=== PATIENT | male | born 1975 | race Two or more races ===

== ENCOUNTER 2017-11-07 09:17 | Emergency (ER) | payer BC ==
[~2017-11-07] VITALS: Ht 162.6 cm; Wt 93.0 kg
[~2017-11-07 09:17] MED LIST: IBUPROFEN600 MG ORAL; NKM; NORCO 5-325 TA1 EAC1 ORAL
[2017-11-07 09:39] VITALS: BP 128/92
[2017-11-07 10:00] LABS: BASOPHILS % (AUTO) 0.9 % (0.0-2.0); EOSINOPHILS % (AUTO) 3.3 % (0.0-3.0); HEMATOCRIT 47.5 % (42.0-52.0); HEMOGLOBIN 16.3 G/DL (14.2-18.0); LYMPHOCYTES % (AUTO) 24.5 % (20.0-45.0); MEAN CORPUSCULAR VOLUME 97 FL (80-99); MONOCYTES % (AUTO) 8.9 % (1.0-10.0); NEUTROPHILS % (AUTO) 62.4 % (45.0-75.0); PLATELET COUNT 104 K/UL (150-450); RED CELL DISTRIBUTION WIDTH 11.2 % (11.6-14.8); WHITE BLOOD COUNT 5.9 K/UL (4.8-10.8)
--- NOTE | 2017-11-07 10:05 | Emergency Room Report ---
History of Present Illness General Chief Complaint: Chest Pain Source: Patient Present Illness HPI This patient has mild, general, nonspecific complaints. 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 He felt somewhat lightheaded, mildly generally weak, blurry vision. He sat down, felt ok, then symptoms returned. He checked google and was concerned he might be having a stroke so came to ED. No trauma, no fever, no shortness of breath, no chest pain, no nausea, no vomiting, no diarrhea, no abdominal pain, no syncope, LOC, dizziness , lightheadedness, headache. CRF: none PMH: "fatty" liver Social: drinks beer daily Allergies: Coded Allergies: FISH DERIVED (Verified Allergy, Unknown, 11/03/15) Shrimp (Verified Allergy, Unknown, 11/03/15) Nursing Documentation-PMH Past Medical History: No Stated History Hx Hypertension: Yes Hx Diabetes: Yes Review of Systems Constitutional: Denies: fever Eye: Denies: acuity changes Respiratory: Denies: cough, shortness of breath Cardiovascular: Denies: chest pain Gastrointestinal: Denies: nausea, vomiting Skin: Denies: rash Neurological: Denies: headache Physical Exam Vital Signs Date Time Temp Pulse Resp B/P (MAP) Pulse Ox O2 Delivery O2 Flow Rate FiO2 11/07/17 09:21 98.1 78 18 133/96 96 Room Air 98.1 General Appearance: well appearing, no apparent distress Head: normocephalic, atraumatic ENT: hearing grossly normal, normal voice, dry mucus membranes Neck: full range of motion, supple Respiratory: no respiratory distress, speaking full sentences Musculoskeletal: no calf tenderness Neurologic: alert, normal gait Psychiatric: mood/affect normal Skin: no rash Medical Decision Making Reaction to Intervention: Improved Diagnostic Impression: Primary Impression: Episode of generalized weakness ER Course the only abnorm on PE was mildly dry mucous membranes and patient does feel thirsty. labs, ekg ok. i reassured patient, gave one liter NS and feeling much better. counseled re drinking and AA. no further intervention required at this time. EKG Diagnostic Results EKG Time: 10:02 Rate: normal Rhythm: NSR ST Segments: no acute changes Rhythm Strip Diag. Results Rhythm Strip Time: 10:02 EP Interpretation: yes Rhythm: NSR Last Vital Signs Date Time Temp Pulse Resp B/P (MAP) Pulse Ox O2 Delivery O2 Flow Rate FiO2 724/18 09:39 87 18 Room Air 11/07/17 09:39 98.1 128/92 99 98.1 Status: improved Disposition: HOME, SELF-CARE Condition: Improved Referrals: NOT CHOSEN IPA/,REFERRING (PCP) Patient Instructions: Dehydration, Adult, [id number] Ancelmo Gaines M.D. Nov 07, 2017 10:05
[2017-11-07 10:10] LABS: ANION GAP 10 mmol/L (5-15); BLOOD UREA NITROGEN 12 mg/dL (7-18); CALCIUM 8.7 MG/DL (8.5-10.1); CARBON DIOXIDE 27 MMOL/L (21-32); CHLORIDE 100 MMOL/L (98-107); CREATININE 0.8 MG/DL (0.55-1.30); POTASSIUM 3.6 MMOL/L (3.5-5.1); SODIUM 137 MMOL/L (136-145)
[2017-11-07 10:21] LABS: ALANINE AMINOTRANSFERASE 46 U/L (12-78); ALBUMIN 3.3 G/DL (3.4-5.0); ALBUMIN/GLOBULIN RATIO 0.6 (1.0-2.7); ALKALINE PHOSPHATASE 232 U/L (46-116); ASPARTATE AMINO TRANSFERASE 71 U/L (15-37); BILIRUBIN,TOTAL 1.3 MG/DL (0.2-1.0); CREATINE KINASE 61 U/L (26-308)
[2017-11-07 10:22] LABS: BILIRUBIN,DIRECT 0.7 MG/DL (0.0-0.3)
[2017-11-07 10:50] VITALS: BP 129/93
[2017-11-07 12:40] VITALS: BP 124/89
--- NOTE | 2017-11-08 15:39 | Cardiology Report ---
APPROVED REPORT EKG Measurement Heart [id number] Normal sinus rhythm Normal ECG
== END 2017-11-07 13:02 | disposition home or self-care (01) ==
LOC: EMR 09:42
DX: R53.1 Weakness (principal); Z91.013 Allergy to seafood; E11.9 Type 2 diabetes mellitus without complications; I10 Essential (primary) hypertension
CPT/HCPCS: 36415; 80053; 82248; 82550; 85025; 93005; 96360; 99283

== ENCOUNTER 2018-08-15 11:43 | Emergency (ER) | payer BC ==
[~2018-08-15] VITALS: Ht 165.1 cm; Wt 83.0 kg
--- NOTE | 2018-08-15 12:13 | NUR ---
ED Nurse Note:pt. came with c/o anxiety and left arm numbness for 2 hrs, no unilateral weakness or facial drulling noted
[2018-08-15 12:16] VITALS: BP 138/77
[2018-08-15 13:03] VITALS: BP 122/83
--- NOTE | 2018-08-15 13:05 | NUR ---
ER DISCHARGE NOTE: Patient is cleared to be discharged per ERMD, pt is aox4, on room air, with stable vital signs. pt was given dc and prescription instructions, pt was able to verbalize understanding pt is able to ambulate with steady gait. pt took all belongings.
--- NOTE | 2018-08-15 13:22 | Emergency Room Report ---
History of Present Illness General Chief Complaint: General Complaint Source: Patient Present Illness HPI Patient presents with complaints of left shoulder numbness and tingling that started earlier today He reports that he wears his work bag on his left shoulder Was not sure if this contributed to his discomfort However he was concern about possible heart attack Denies any shortness of breath patient had questionable left upper chest discomfort as well with this denies any pleurisy Patient reports that his primary physician told him he likely had underlying anxiety and has prescribed him benzodiazepine medication patient has also been given referral to GI specialist given some abnormal liver test patient reports that he does drink alcohol regularly Denies any pleurisy denies any recent travel Allergies: Coded Allergies: FISH DERIVED (Verified Allergy, Unknown, 11/03/15) Shrimp (Verified Allergy, Unknown, 11/03/15) Patient History Past Medical History: see triage record Pertinent Family History: none Reviewed Nursing Documentation: PMH: Agreed; PSxH: Agreed Nursing Documentation-PMH Past Medical History: No History, Except For Hx Hypertension: Yes Hx Diabetes: Yes Review of Systems All Other Systems: negative except mentioned in HPI Physical Exam Vital Signs Date Time Temp Pulse Resp B/P (MAP) Pulse Ox O2 Delivery O2 Flow Rate FiO2 08/15/18 11:47 98.2 92 20 144/89 94 Room Air Sp02 EP Interpretation: reviewed, normal General Appearance: well appearing, no apparent distress Head: normocephalic, atraumatic Eyes: bilateral eye PERRL, bilateral eye EOMI ENT: hearing grossly normal, normal pharynx, TMs + canals normal, uvula midline Neck: full range of motion, supple, no meningismus, no bony tend Respiratory: lungs clear, normal breath sounds, no rhonchi, no respiratory distress, no retraction, no accessory muscle use Cardiovascular #1: normal peripheral pulses, regular rate, rhythm, no edema, no gallop, no JVD, no murmur Gastrointestinal: normal bowel sounds, non tender, soft, no mass, no organomegaly, non-distended, no guarding, no hernia, no pulsatile mass, no rebound Genitourinary: no CVA tenderness Musculoskeletal: normal inspection Neurologic: oriented x3, responsive, cage cashier III-XII nml as tested, motor strength/ tone normal, sensory intact Psychiatric: mood/affect normal Skin: normal color, no rash, warm/dry, palpation normal Lymphatic: normal inspection, no adenopathy Medical Decision Making Diagnostic Impression: Primary Impression: radiculopathy ER Course Patient is a fairly complex patient with multiple differential to consideration including but not limited to cardiac cardiopulmonary and vascular emergencies Other differentials such as neurological, neurosurgical musculoskeletal pathology entertained Patient has equal medical collector bilaterally otherwise essentially asymptomatic EKG shows normal sinus rhythm Patient remains hemodynamically stable and is appropriate for initial outpatient follow-up EKG Diagnostic Results Rate: normal Rhythm: NSR ST Segments: no acute changes Rhythm Strip Diag. Results EP Interpretation: yes Rate: 77 Rhythm: NSR, no PVC's, no ectopy Last Vital Signs Date Time Temp Pulse Resp B/P (MAP) Pulse Ox O2 Delivery O2 Flow Rate FiO2 08/15/18 13:04 98.2 95 20 122/83 97 Room Air Status: improved Disposition: HOME, SELF-CARE Condition: Stable Referrals: Sancho [facility] Patient Instructions: Nonspecific Chest Pain, [id number], Cervical Radiculopathy, [id number] Additional Instructions: Patient is provided with the discharge instructions notified to follow up with primary doctor in the next 2-3 days otherwise return to the er with any worsening symptoms. Please note that this report is being documented using [employer] technology. This can lead to erroneous entry secondary to incorrect interpretation by the dictating instrument. Braulio Davenport DO August 15, 2018 13:22
--- NOTE | 2018-08-16 17:45 | Cardiology Report ---
APPROVED REPORT EKG Measurement Heart [id number] Normal sinus rhythm Normal ECG
== END 2018-08-15 13:10 | disposition home or self-care (01) ==
LOC: EMR 12:20
DX: M54.12 Radiculopathy, cervical region (principal); I10 Essential (primary) hypertension; E11.9 Type 2 diabetes mellitus without complications
CPT/HCPCS: 93005; 99283

== ENCOUNTER 2018-10-17 11:36 | Emergency (ER) | payer BC ==
[~2018-10-17] VITALS: Ht 165.1 cm; Wt 83.9 kg
--- NOTE | 2018-10-17 12:12 | NUR ---
ED Nurse Note: PT WALKED IN TO ER TODAY FROM WORK. AOX4. PT C/O HEART PALPITATIONS AND ANXIETY X 1 HOUR AGO. PT STATES HE TOOK HIS PRESCRIBED MEDICATION FOR ANXIETY AND IS NOW FEELING BETTER. PT DENIES PALPITATIONS OR ANXIETY AT THIS TIME.
[2018-10-17 12:13] VITALS: BP 126/80
--- NOTE | 2018-10-17 12:24 | Emergency Room Report ---
History of Present Illness General Chief Complaint: Behavioral Complaint Source: Patient Present Illness HPI This patient states that he has been diagnosed with anxiety. He does have Xanax to use as needed. He states he was at work and he developed the anxiety symptoms. He states he just feels anxious and nervous. He did take the Xanax but then was driving home and was not quite feeling well. He decided to stop here to get evaluated. He states by the time he got fully checked and he felt normal and back to baseline. He has no complaints. He did not have chest pain during the episode. He did not feel like he was going to pass out. He denies recent illness. He has no other complaints. Allergies: Coded Allergies: FISH DERIVED (Verified Allergy, Unknown, 11/03/15) Shrimp (Verified Allergy, Unknown, 11/03/15) Patient History Past Medical History: see triage record, DM, HTN, psych hx - Anxiety Social History: Denies: smoking, alcohol use, drug use Reviewed Nursing Documentation: PMH: Agreed; PSxH: Agreed Nursing Documentation-PMH Past Medical History: No History, Except For Hx Hypertension: Yes Hx Diabetes: Yes History Of Psychiatric Problem: Yes - anxiety Review of Systems All Other Systems: negative except mentioned in HPI Physical Exam Vital Signs Date Time Temp Pulse Resp B/P (MAP) Pulse Ox O2 Delivery O2 Flow Rate FiO2 10/17/18 11:39 98.6 85 22 130/84 (99) 95 Room Air Sp02 EP Interpretation: reviewed, normal General Appearance: no apparent distress, alert, GCS 15, non-toxic Head: normocephalic, atraumatic Eyes: bilateral eye normal inspection, bilateral eye PERRL ENT: hearing grossly normal, normal pharynx, no angioedema, normal voice Neck: full range of motion, supple/symm/no masses Respiratory: chest non-tender, lungs clear, normal breath sounds, no respiratory distress, no retraction, no accessory muscle use, speaking full sentences Cardiovascular #1: regular rate, rhythm, no edema Gastrointestinal: normal bowel sounds, non tender, soft, non-distended, no guarding, no rebound Rectal: deferred Musculoskeletal: back normal, gait/station normal, normal range of motion, non- tender Neurologic: alert, oriented x3, responsive, motor strength/tone normal, sensory intact, speech normal Psychiatric: judgement/insight normal, memory normal, mood/affect normal, no suicidal/homicidal ideation Medical Decision Making Diagnostic Impression: Primary Impression: Panic attacks ER Course This patient has known panic attacks. He treated himself with his own Xanax prior to arrival. The feelings he was having just after he took the Xanax are likely side effects related to the Xanax. My evaluation on this patient is benign. The patient is well-appearing and nontoxic. Physical exam is normal. The patient does not desire any further evaluation and I do not think that any further evaluation is indicated at this time. The patient was educated to be careful with the Xanax as it is habit-forming. He indicated understanding. He is given return precautions and follow-up instructions. Last Vital Signs Date Time Temp Pulse Resp B/P (MAP) Pulse Ox O2 Delivery O2 Flow Rate FiO2 10/17/18 12:13 78 18 Room Air 10/17/18 12:13 98.4 126/80 98 Status: improved Disposition: HOME, SELF-CARE Condition: Improved Coco Chavez DO Oct 17, 2018 12:24
--- NOTE | 2018-10-17 12:27 | NUR ---
ED Nurse Note: PT LAYING PEACEFULLY IN BED IN NAD. AOX4. DISCHARGE PAPERWORK EXPLAINED TO PT. PT VERBALIZES UNDERSTANDING AND ALL QUESTIONS ANSWERED. DISCHARGE PAPERWORK GIVEN TO PT AND ID WRISTBAND REMOVED. PT WALKED OUT OF ER WITH STEADY GAIT AND ALL BELONGINGS.
[2018-10-17 12:28] VITALS: BP 126/82
== END 2018-10-17 12:27 | disposition home or self-care (01) ==
LOC: EMR 12:15
DX: F41.0 Panic disorder [episodic paroxysmal anxiety] (principal); I10 Essential (primary) hypertension; E11.9 Type 2 diabetes mellitus without complications; F41.9 Anxiety disorder, unspecified
CPT/HCPCS: 99281

== ENCOUNTER 2019-02-18 13:18 | Inpatient (IN) | payer BC ==
[~2019-02-18] VITALS: Ht 165.1 cm; Wt 78.1 kg
[2019-02-18] MEDS ORDERED: B COMPLEX WITH1 EAC2 ORAL (13:27)
[2019-02-18] MEDS ORDERED: Methocarbamol 500mg tab ORAL ONE (13:45)
[2019-02-18] MEDS ORDERED: Omnipaque-300 100ml vial INJ PRN (13:45)
[2019-02-18 14:01] VITALS: BP 132/84
--- NOTE | 2019-02-18 14:05 | NUR ---
ED Nurse Note:pt. came with bilateral hands cramping his skin and eyes are yellow , blood and urine sent to labs
[2019-02-18 14:19] LABS: APPEARANCE,URINE CLEAR; BILIRUBIN, URINE 3+ (NEGATIVE); COLOR,URINE BROWN; GLUCOSE, URINE (UA) NEGATIVE (NEGATIVE); KETONES,URINE 2+ (NEGATIVE); LEUKOCYTE ESTERASE ,URINE 1+ (NEGATIVE); NITRITE,URINE NEGATIVE (NEGATIVE); PH,URINE 6.5 (4.5-8.0); PROTEIN,URINE 2+ (NEGATIVE); UROBILINOGEN,URINE 8 MG/DL (0.0-1.0)
[2019-02-18 14:21] LABS: HEMOGLOBIN 13.9 G/DL (14.2-18.0); MEAN CORPUSCULAR VOLUME 105 FL (80-99); PLATELET COUNT 97 K/UL (150-450); RED BLOOD COUNT 3.82 M/UL (4.70-6.10); WHITE BLOOD COUNT 8.2 K/UL (4.8-10.8)
[2019-02-18 14:30] LABS: INR 1.5 (0.9-1.1)
[2019-02-18 14:31] LABS: ANION GAP 9 mmol/L (5-15); BLOOD UREA NITROGEN 13 mg/dL (7-18); CALCIUM 8.4 MG/DL (8.5-10.1); CARBON DIOXIDE 26 MMOL/L (21-32); CHLORIDE 101 MMOL/L (98-107); CREATININE 0.9 MG/DL (0.55-1.30); POTASSIUM 3.7 MMOL/L (3.5-5.1); SODIUM 135 MMOL/L (136-145)
[2019-02-18 14:41] LABS: ALANINE AMINOTRANSFERASE 50 U/L (12-78); ALBUMIN/GLOBULIN RATIO 0.4 (1.0-2.7); ALKALINE PHOSPHATASE 223 U/L (46-116); ASPARTATE AMINO TRANSFERASE 122 U/L (15-37); BILIRUBIN,TOTAL 21.1 MG/DL (0.2-1.0)
[2019-02-18 14:43] LABS: BILIRUBIN,DIRECT 15.1 MG/DL (0.0-0.3)
--- NOTE | 2019-02-18 14:53 | Emergency Room Report ---
History of Present Illness General Chief Complaint: General Complaint Source: Patient (Palma Lambert) Present Illness HPI 43-year-old male with history of liver cirrhosis 1 hour onset of a locked right hand on working. Patient denies any fall or injury or heavy lifting. Reports that it also happens as he tries to hold something at work and last several months. Patient has bilateral icterus of eyes and distended abdomen with ventral abdominal hernia which has been there changing color for the past several months. Denies fever and chills, shortness of breath, nausea vomiting. Reports that he used to drink 15 beers a day now in the past week he has been cutting back and drinking 6-8 beers a day. Denies smoking, marijuana use, no other drug use. Denies diarrhea and constipation. No motor or sensory deficits noted. Complains of pain and numbness in the right hand. Reports that he used to take Xanax occasionally for anxiety. Denies SI and HI. (Palma Lambert) Allergies: Coded Allergies: FISH DERIVED (Verified Allergy, Unknown, 11/03/15) Shrimp (Verified Allergy, Unknown, 11/03/15) Patient History Past Medical History: see triage record Past Surgical History: unable to obtain Pertinent Family History: none Social History: Reports: alcohol use - 6-8 beers a day x20 years Immunizations: UTD Reviewed Nursing Documentation: PMH: Agreed; PSxH: Agreed (Palma Lambert) Nursing Documentation-PMH Past Medical History: No Stated History Hx Hypertension: Yes (Palma Lambert) Review of Systems All Other Systems: negative except mentioned in HPI (Palma Lambert) Physical Exam Vital Signs Date Time Temp Pulse Resp B/P (MAP) Pulse Ox O2 Delivery O2 Flow Rate FiO2 02/18/19 13:22 97.5 105 19 132/84 (100) 98 Room Air Sp02 EP Interpretation: reviewed, normal General Appearance: no apparent distress, alert, GCS 15, non-toxic Head: normocephalic, atraumatic Eyes: bilateral eye PERRL, bilateral eye scleral icterus ENT: hearing grossly normal, normal pharynx, no angioedema, normal voice Neck: full range of motion, supple, no meningismus, supple/symm/no masses Respiratory: chest non-tender, lungs clear, normal breath sounds, no rhonchi, no respiratory distress, no retraction, no accessory muscle use, no wheezing, speaking full sentences Cardiovascular #1: regular rate, rhythm, no edema, no gallop, no JVD, no murmur , no rub Cardiovascular #2: 2+ carotid (R), 2+ radial (R), 2+ radial (L) Gastrointestinal: normal bowel sounds, no guarding, no rebound, distended, hernia - ventral Genitourinary: no CVA tenderness Musculoskeletal: back normal, digits/nails normal, gait/station normal, normal range of motion, non-tender, no calf tenderness Neurologic: alert, oriented x3, responsive, motor strength/tone normal, sensory intact, speech normal Psychiatric: normal inspection, judgement/insight normal, memory normal, mood/ affect normal, no suicidal/homicidal ideation Skin: no rash Lymphatic: normal inspection, no adenopathy (Palma Lambert) Medical Decision Making PA Attestation All my diagnosis and treatment plans were reviewed ad discussed with my supervising physician Dr. 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 Patient denies any fall or injury or heavy lifting. Reports that it also happens as he tries to hold something at work and last several months. Patient has bilateral icterus of eyes and distended abdomen with ventral abdominal hernia which has been there changing color for the past several months. Denies fever and chills, shortness of breath, nausea vomiting. Reports that he used to drink 15 beers a day now in the past week he has been cutting back and drinking 6-8 beers a day. Denies smoking, marijuana use, no other drug use. Denies diarrhea and constipation. No motor or sensory deficits noted. Complains of pain and numbness in the right hand. Reports that he used to take Xanax occasionally for anxiety. Denies SI and HI. Ddx considered but are not limited to: appendicitis, cholecystis, gastritis, gastroenteritis, UTI, pyelonephritis, SBO, diverticulitis, influenza with GI manifestation, liver cirrhosis, incarcerated hernia, strangulated hernia, nonreducible hernia Vital signs: are WNL, pt. is afebrile H&PE are most consistent with: Liver cirrhosis ORDERS: abdominal CT, abdominal pain set, EKG, ED INTERVENTIONS: None required at this time. Patient was admitted with diagnosis of liver failure/cirrhosis to Dr. Busch under supervision of : Christie pt stable at time of admission (Palma Lambert) ER Course I evaluated this patient with MILDRED Degroot. I agree with her workup and assessment. I agree that patient would benefit from inpatient admission. I contacted Dr Hernandez for admission and Dr Carreno to consult (Jose Eduardo Soriano MD) EKG Diagnostic Results Rate: normal Rhythm: NSR ST Segments: no acute changes Other Impression No acute ST changes (Palma Lambert) Chest X-Ray Diagnostic Results Chest X-Ray Diagnostic Results : Chest X-Ray Ordered: Yes # of Views/Limited/Complete: 1 View Indication: Other EP Interpretation: Yes PA Xray: Interpretation reviewed, by supervising MD, and agrees with findings. Interpretation: no consolidation, no effusion, no pneumothorax Impression: No acute disease Electronically Signed by: Palma Daniels PA-C (Palma Lambert) CT/MRI/US Diagnostic Results CT/MRI/US Diagnostic Results : Imaging Test Ordered: CT abd pelvis with contrast Impression Liver cirrhosis (Palma Lambert) Last Vital Signs Date Time Temp Pulse Resp B/P (MAP) Pulse Ox O2 Delivery O2 Flow Rate FiO2 02/18/19 14:01 97.5 105 19 132/84 98 Room Air (Palma Lambert) Status: improved (Jose Eduardo Soriano MD) Disposition: ADMITTED INPATIENT Condition: Serious Palma Lambert Feb 18, 2019 14:53 Jose Eduardo Soriano MD Feb 18, 2019 19:46
--- NOTE | 2019-02-18 15:02 | NUR ---
ED Nurse Note:pt. had abdominal ct scan done
--- NOTE | 2019-02-18 15:14 | Diagnostic Imaging Report ---
Indication: Chest pain Comparison: None A single view chest radiograph was obtained. Findings: Cardiomediastinal appearance is within normal limits for age. The lungs are clear. Pulmonary vascularity is appropriate. The diaphragmatic contour is smooth and costophrenic angles are sharp. No pleural effusions are identified. The bones are unremarkable. Impression: No acute findings
--- NOTE | 2019-02-18 15:48 | Diagnostic Imaging Report ---
Indication: Abdominal pain Technique: Continuous helical transaxial imaging of the abdomen and pelvis was obtained from the lung bases to the pubic symphysis during intravenous contrast administration. Coronal 2-D reformats were also obtained. Study obtained in a Siemens sensation [address] Automatic Exposure Control was utilized. Total Dose length Product (DLP): 1023.[address] Dose Index Volume (CTDIvol): 16.4 mGy Comparison: None Findings: There is evidence of cirrhosis/chronic liver disease with nodularity of the liver moderate ascites recanalized umbilical vein and splenomegaly. Spleen measures 18 cm. There is no evidence of bowel obstruction. There is no hydronephrosis. Gallbladder is contracted. The pancreas is unremarkable. Subcutaneous edema demonstrated within the chest wall. There are increased vascular structures within the celiac region and splenic hilum likely portosystemic varices. There is mild right posterior basal atelectasis. There is right breast tissue consistent with gynecomastia. IMPRESSION: Cirrhosis of the liver with signs of portal hypertension including moderate ascites, splenomegaly, recanalized umbilical vein and portosystemic varices. Gynecomastia Mild right basal atelectasis The CT scanner at [facility] is accredited by the [employer] and the scans are performed using dose optimization techniques as appropriate to a performed exam including Automatic Exposure control.
[2019-02-18 17:04] VITALS: BP 130/81
--- NOTE | 2019-02-18 17:47 | NUR ---
REPORT GIVEN TO MIN RN PATIENT IS TO BE TRANSFERD TO ROOM 303-1 [facility]
[2019-02-18 18:00] VITALS: BP 147/96
--- NOTE | 2019-02-18 18:00 | NUR ---
NURSE NOTES: Patient transferred from ED via wheelchair with dispensary technician. No c/o pain. Received report from Yanet SHOEMAKER over the phone. Noted hernia around umbilicus. No edema noted on BLE. No SOB noted. IV in LAC 20G SL patent and asymptomatic. patient admitted with his . Home meds Xanax will be returned to home by his . Belonging list reviewed and singed by the patient. Will continue to plan of care.
[2019-02-18] MEDS ORDERED: VITAMIN B-1100 MG ORAL (18:08)
[2019-02-18] MEDS ORDERED: ALPRAZOLAM0.25 MG ORAL (18:08)
--- NOTE | 2019-02-18 18:16 | NUR ---
NURSE NOTES: Dr. Hernandez paged for admission orders. Per MD, he is going to put the orders in.
[2019-02-18] MEDS ORDERED: Morphine Sulfate 2mg/ml Inj(IV/IM USE ONLY) IVP PRN (18:45)
--- NOTE | 2019-02-18 19:15 | NUR ---
HAND-OFF: Report given to Jose SHOEMAKER. Pt remains stable.
--- NOTE | 2019-02-18 19:30 | NUR ---
NURSE NOTES: Received report form Min, RN and rounds made with outgoing nurse. Received pt sitting up in bed, AOx4, denies any pain, no nausea or vomiting, no distress noted. IV left AC # 20 patent and intact. Bed in lowest position and locked, side rails up x 2, call light within reach. Will continue to monitor.
[2019-02-18 20:00] VITALS: BP 139/90
[2019-02-18] MEDS ORDERED: Enoxaparin 40mg Inj SUBQ SCH (20:00)
--- NOTE | 2019-02-18 20:06 | History & Physical ---
History and Physical History & Physicial dictated #[id number] Casey Hernandez MD Feb 18, 2019 20:06
[2019-02-18] MEDS ORDERED: ALPRAZolam 0.25mg tab ORAL PRN (20:15)
[2019-02-19] VITALS: BP 128/80
--- NOTE | 2019-02-19 01:00 | History and Physical Report ---
DATE OF ADMISSION: 02/18/2019 REASON FOR ADMISSION: Left hand tremors and spasms. HISTORY OF PRESENT ILLNESS: This is a 43-year-old male with a history of alcoholism since younger, recently diagnosed with liver disease, who presents to the emergency room for cramps of the left hand and pain. He states that his left hand has been locking, it started last week. He also reports having yellow eyes over the last 2 months and has noted that his abdomen has been more distended over the last 2 weeks. He drinks about 12 to 14 beers a day for the last 3 to 4 years and was drinking 8 beers a day prior to that. He states he saw a neon electrician on one visit, but did not follow up with him. PAST MEDICAL HISTORY: 1. Cirrhosis. 2. Ventral hernia. PAST SURGICAL HISTORY: None. SOCIAL HISTORY: The patient drinks 12 to 14 beers a day, was drinking 6 to 8 beers before that for the last 20 years, no drugs. No smoking. REVIEW OF SYSTEMS: A 12-point review of systems was negative except for pertinent positives as mentioned above. PHYSICAL EXAMINATION: VITAL SIGNS: Temperature 96.8, pulse 104, respiratory rate 18, blood pressure 147/96, O2 saturation 95% on room air. GENERAL: No acute distress. The patient has icterus. The patient is jaundiced. HEENT: Normocephalic/atraumatic. NECK: Supple. No JVD. LUNGS: Clear to auscultation bilaterally. No crackles, rhonchi, or rales. CARDIOVASCULAR: Regular rate and rhythm. Normal S1, S2. ABDOMEN: Soft, nontender. Abdomen is distended. He has a fluid wave. EXTREMITIES: No clubbing, cyanosis. Has +1 pitting edema. NEUROLOGIC: The patient follows commands. LABORATORY AND DIAGNOSTIC DATA: CBC, white count of 8.2, hemoglobin 13.9, platelet count 97,000. BMP, sodium 135, potassium 3.7, chloride 101, CO2 26, BUN 13, and creatinine 0.9. Total bilirubin 21.1, direct bilirubin 16.1. AST is 122, ALT is 50, alkaline phosphatase 223. Albumin is 2. Lipase 510. Urinalysis 2 to 4 white blood cells, 1+ leukocyte esterase, 2+ blood, 3+ bilirubin, 2+ protein. Urine tox is negative. CT of abdomen and pelvis shows cirrhosis of the liver with signs of portal hypertension, moderate ascites, splenomegaly, recanalized umbilical vein and portal system, gynecomastia. Chest x-ray shows no acute findings. ASSESSMENT: 1. Left hand cramps. 2. Cirrhosis with ascites, coagulopathy with INR of 1.5, splenomegaly, and portal hypertension (MELD score 22) 3. Alcoholism. PLAN: 1. Admit the patient to med/surg. 2. GI consult in the morning. 3. Evaluation for paracentesis. 4. Discussed with the patient on discontinuing alcohol. 5. We will start thiamine and folate. 6. SCDs. 7. Resume patient's home medications. Casey Hernandez MD DR: Corin JOB#: [id number] CC: ERNA
[2019-02-19 04:55] VITALS: BP 130/79
--- NOTE | 2019-02-19 06:39 | General Progress Note ---
Assessment/Plan Assessment/Plan: ETOH cirrhosis ascites hypoalbuminemia coagulopathy portal HTN paracentesis albumin vit K thiamine/folate EGD tomorrow repeat labs Subjective ROS Limited/Unobtainable: Yes Allergies: Coded Allergies: FISH DERIVED (Verified Allergy, Unknown, 11/03/15) Shrimp (Verified Allergy, Unknown, 11/03/15) Objective Last 24 Hour Vital Signs Date Time Temp Pulse Resp B/P (MAP) Pulse Ox O2 Delivery O2 Flow Rate FiO2 02/19/19 04:55 99.0 93 18 130/79 (96) 95 02/19/19 00:00 98.1 99 18 128/80 (96) 95 02/18/19 21:00 Room Air 02/18/19 20:00 98.3 99 18 139/90 (106) 94 02/18/19 18:11 Room Air 02/18/19 18:00 96.8 104 18 147/96 (113) 95 02/18/19 17:47 97.8 78 16 130/80 98 Room Air 02/18/19 17:04 97.5 98 17 130/81 98 Room Air 02/18/19 14:01 97.5 105 19 132/84 98 Room Air 02/18/19 14:01 105 19 Room Air 02/18/19 13:22 97.5 105 19 132/84 (100) 98 Room Air Intake and Output 02/18/19 02/19/19 19:00 07:00 Intake Total 120 ml Balance 120 ml Intake Oral 120 ml # Voids 1 Laboratory Tests 02/18/19 14:00: White Blood Count 8.2, Red Blood Count 3.82L, Hemoglobin 13.9L, Hematocrit 40.0L , Mean Corpuscular Volume 105H, Mean Corpuscular Hemoglobin 36.5H, Mean Corpuscular Hemoglobin Concent 34.8, Red Cell Distribution Width 13.0, Platelet Count 97L, Mean Platelet Volume 6.8, Neutrophils (%) (Auto) , Lymphocytes (%) ( Auto) , Monocytes (%) (Auto) , Eosinophils (%) (Auto) , Basophils (%) (Auto) , Differential Total Cells Counted 100, Neutrophils % (Manual) 82H, Lymphocytes % (Manual) 9L, Monocytes % (Manual) 7, Eosinophils % (Manual) 2, Basophils % ( Manual) 0, Band Neutrophils 0, Nucleated Red Blood Cells 2, Platelet Estimate DecreasedL, Platelet Morphology Normal, Prothrombin Time 15.8H, Prothromb Time International Ratio 1.5H, Activated Partial Thromboplast Time 36H, Urine Color Brown, Urine Appearance Clear, Urine pH 6.5, Urine Specific [place] 1.020, Urine Protein 2+H, Urine Glucose (UA) Negative, Urine Ketones 2+H, Urine Blood 2 +H, Urine Nitrite Negative, Urine Bilirubin 3+H, Urine Ictotest Positive, Urine Urobilinogen 8H, Urine Leukocyte Esterase 1+H, Urine RBC 2-4H, Urine WBC 2-4, Urine Squamous Epithelial Cells Occasional, Urine Amorphous Sediment ModerateH, Urine Bacteria Few, Urine Mucus ModerateH, Sodium Level 135L, Potassium Level 3.7, Chloride Level 101, Carbon Dioxide Level 26, Anion Gap 9, Blood Urea Nitrogen 13, Creatinine 0.9, Estimat Glomerular Filtration Rate > 60, Glucose Level 115H, Calcium Level 8.4L, Total Bilirubin 21.1H, Direct Bilirubin 15.1H, Aspartate Amino Transf (AST/SGOT) 122H, Alanine Aminotransferase (ALT/SGPT) 50, Alkaline Phosphatase 223H, Troponin I 0.000, Total Protein 7.4, Albumin 2.0L, Globulin 5.4, Albumin/Globulin Ratio 0.4L, Lipase 510H, Urine Opiates Screen Negative, Urine Barbiturates Screen Negative, Phencyclidine (PCP) Screen Negative, Urine Amphetamines Screen Negative, Urine Benzodiazepines Screen Negative, Urine Cocaine Screen Negative, Urine Marijuana (THC) Screen Negative 02/18/19 21:15: Ammonia 22 02/19/19 04:45: Sodium Level [Pending], Potassium Level [Pending], Chloride Level [Pending], Carbon Dioxide Level [Pending], Blood Urea Nitrogen [Pending], Creatinine [ Pending], Estimat Glomerular Filtration Rate [Pending], Glucose Level [Pending] , Calcium Level [Pending], Total Bilirubin [Pending], Aspartate Amino Transf ( AST/SGOT) [Pending], Alanine Aminotransferase (ALT/SGPT) [Pending], Alkaline Phosphatase [Pending], Total Protein [Pending], Albumin [Pending], Globulin [ Pending] Height (Feet): 5 Height (Inches): 5.00 Weight (Pounds): 184 General Appearance: alert EENT: PERRL/EOMI Neck: supple Cardiovascular: normal rate Respiratory/Chest: decreased breath sounds Abdomen: soft, decreased bowel sounds, distended Extremities: non-tender Yovani Carreno MD Feb 19, 2019 06:39
[2019-02-19] MEDS ORDERED: Phytonadione 1 MG in D5W 55 ML IVPB ONE (07:00)
[2019-02-19 07:26] LABS: ALANINE AMINOTRANSFERASE 40 U/L (12-78); ALBUMIN 1.6 G/DL (3.4-5.0); ALBUMIN/GLOBULIN RATIO 0.3 (1.0-2.7); ALKALINE PHOSPHATASE 223 U/L (46-116); ANION GAP 8 mmol/L (5-15); ASPARTATE AMINO TRANSFERASE 99 U/L (15-37); BILIRUBIN,TOTAL 16.6 MG/DL (0.2-1.0); BLOOD UREA NITROGEN 12 mg/dL (7-18); CALCIUM 7.7 MG/DL (8.5-10.1); CARBON DIOXIDE 23 MMOL/L (21-32); CHLORIDE 103 MMOL/L (98-107); CREATININE 0.7 MG/DL (0.55-1.30); SODIUM 134 MMOL/L (136-145)
[2019-02-19 07:28] LABS: BILIRUBIN,DIRECT 12.6 MG/DL (0.0-0.3)
[2019-02-19 08:00] VITALS: BP_SYST 107; BP_SYST 115; BP_DIAS 66; BP_DIAS 76
--- NOTE | 2019-02-19 08:00 | NUR ---
NURSE NOTES: Received report from Jose Velasco pt a/a/o x4 laying in bed with no signs of distress or other issues at this time. notes yellow sclera as well as jaundice. no skin issues. pt is able to ambulate with steady gait. IV on the left AC gauge#20 call light within reach. bed in lowest position, side rales up x2. I will f/u as needed. plan for ultrasound Paracentesis today.
--- NOTE | 2019-02-19 08:11 | NUR ---
HAND-OFF: Report given to SAHARA Bradshaw. Pt in stable condition.
[2019-02-19] MEDS: Thiamine 100mg tab ORAL SCH (08:52)
--- NOTE | 2019-02-19 09:30 | NUR ---
NURSE NOTES: pt left the floor ultrasound paracentesis. pt left the floor with no signs of distress or other issues at this time. I will f/u as needed.
--- NOTE | 2019-02-19 10:30 | NUR ---
*-* INSURANCE *-* ALL AVAILABLE CLINICALS HAVE BEEN FAXED TO: KIANNA GILES CM #[phone] FAX#[phone] REVIEWS/CLINICALS Addendum: 02/19/19 at 1246 by JADA BECERRA CM JOSE:MICHELLE P: [phone] REF# [id number]
--- NOTE | 2019-02-19 11:09 | Pre-Procedure Note/Attestation ---
Pre-Procedure Note/Attestation Complete Prior to Procedure Planned Procedure: not applicable Procedure Narrative: paracentesis Indications for Procedure Pre-Operative Diagnosis: ascites Attestation I attest that I discussed the nature of the procedure; its benefits; risks and complications; and alternatives (and the risks and benefits of such alternatives ), prior to the procedure, with the patient (or the patient's legal marketing sales representative). I attest that, if there was a reasonable possibility of needing a blood transfusion, the patient (or the patient's legal marketing sales representative) was given the [facility] standardized written summary, pursuant to the [place] Blood Safety Act ([place] Health and Safety Code # 1645, as amended). I attest that I re-evaluated the patient just prior to the surgery and that there has been no change in the patient's H&P, except as documented below: Calixto Urbano MD Feb 19, 2019 11:09
--- NOTE | 2019-02-19 11:10 | Brief Operative Note ---
Immediate Post Operative Note Operative Note Pre-op Diagnosis: ascites Procedure: paracentesis Post-op Diagnosis: same as pre-op Findings: consistent w/pre-op dx studies Surgeon: Rach Munoz Anesthesia: local Specimen: yes - 50 ml fluid sent to lab Complications: none Fluids: none Implant(s) used?: No Calixto Munoz MD Feb 19, 2019 11:10
--- NOTE | 2019-02-19 11:30 | NUR ---
NURSE NOTES: Pt back to the floor from US paracenteses. per report removed 4.2L. pt in stable condition and no signs of distress. I will fu as needed.
[2019-02-19 12:00] VITALS: BP 115/63
--- NOTE | 2019-02-19 13:14 | Diagnostic Imaging Report ---
Indications: Ascites Technique: Ultrasound used to localize optimal puncture site. Sterile prepping and draping left lower quadrant. Local anesthesia with 1% lidocaine. Under real-time ultrasound guidance, puncture peritoneal space using paracentesis needle. Stylet removed. Catheter placed to vacuum bottle suction. Total 4.2 liters of fluid aspirated. Patient tolerated procedure well, without immediate complication. Findings: Followup sonography demonstrates complete resolution of peritoneal fluid. Impression: Successful ultrasound-guided paracentesis, yielding 4.2 liters of clear yellow fluid
--- NOTE | 2019-02-19 15:37 | NUR ---
CASE MANAGEMENT: INITIAL REVIEW 43 YR OLD MALE FROM HOME CC: GENERAL COMPLAINT SI: LIVER CIRRHOSIS; MUSCLE SPASM 97.6 105 19 132/84 98% ON RA TBIL 21.1; DBIL 15.1; AST 122; ALK PHOS 223 PT/INR 15.8/1.5; PTT 36 IS: ROBAXIN PO X1 CT ABD/PEL WITH CONTRAST CXR : 3E MED SURG UNIT DCP: RETURN HOME WHEN MEDICALLY CLEAR PLAN: CT ABD US PARACENTESIS CASE MANAGEMENT: REVIEW 02/19/19 SI: LIVER CIRRHOSIS; MUSCLE SPASM 98.0 89 20 115/76 93% ON RA CA+ 7.7; TBIL 16.6; DBIL 12.6; AST 99; ALK PHOS 223 IS: IV PHYTONADIONE X1 IV ALBUMIN HUMAN X1 VIT B1 PO QD FOLATE PO QD : 3E MED SURG UNIT DCP: RETURN HOME WHEN MEDICALLY CLEAR PLAN: EGD WITH POSSIBLE BX IN AM
[2019-02-19 16:00] VITALS: BP 123/77
--- NOTE | 2019-02-19 19:38 | NUR ---
HAND-OFF: Report given to Report given to Meagan SHOEMAKER. pt in stable condition. - incoming nurse is aware that pt needs to NPO after midnight for EGD.
--- NOTE | 2019-02-19 19:40 | NUR ---
NURSE NOTES: Patient awake in bed talking to family at bedside, no complaint of pain at this time, no respiratory distress noted. Instructed on NPO post midnight, patient verbalized understanding of preparation for tomorrow's procedure. Call light in reach. Bed in lowest and lock engaged. Will continue to monitor.
[2019-02-19 20:00] VITALS: BP 111/64
[2019-02-19] MEDS ORDERED: NS 275ml ONE (22:41)
[2019-02-19] MEDS ORDERED: Tubing IV Secondary IV ONE (22:41)
--- NOTE | 2019-02-19 22:58 | NUR ---
NURSE NOTES: Patient had a shower. IV access still intact, patent and asymptomatic. Line flushed with normal saline 10cc.
[2019-02-20] VITALS (12 sets, daily range): BP systolic 103–116; BP diastolic 56–76
--- NOTE | 2019-02-20 00:36 | NUR ---
NURSE NOTE: Resumed care from Christel Fortune. Pt VS stables and orders reviewed. Call dodge is within reach, will continue to monitor. Pt is NPO no IV fluids,Wai alejandred.
--- NOTE | 2019-02-20 01:08 | NUR ---
NURSE NOTE: Dr. Carreno paged at 01:07 in regard to pt NPO status without IV maintenance fluids.
--- NOTE | 2019-02-20 01:11 | NUR ---
HAND-OFF: Report given to SAHARA Marion.
--- NOTE | 2019-02-20 01:14 | NUR ---
NURSE NOTE: Dr. Hernandez called at 0115 regarding pt NPO status without IV maintenance fluids.
[2019-02-20 05:54] LABS: HEMATOCRIT 34.7 % (42.0-52.0); HEMOGLOBIN 12.5 G/DL (14.2-18.0); MEAN CORPUSCULAR VOLUME 104 FL (80-99); PLATELET COUNT 78 K/UL (150-450); RED BLOOD COUNT 3.32 M/UL (4.70-6.10); RED CELL DISTRIBUTION WIDTH 12.1 % (11.6-14.8)
[2019-02-20 06:00] LABS: INR 1.5 (0.9-1.1)
[2019-02-20 06:15] LABS: AMMONIA 61 umol/L (11-32)
[2019-02-20 06:20] LABS: % IRON SATURATION 82 % (15-50); IRON 94 ug/dL (50-175); TOTAL IRON BINDING CAPACITY 115 ug/dL (250-450)
[2019-02-20 06:29] LABS: ALANINE AMINOTRANSFERASE 36 U/L (12-78); ALBUMIN 1.8 G/DL (3.4-5.0); ALBUMIN/GLOBULIN RATIO 0.4 (1.0-2.7); ALKALINE PHOSPHATASE 194 U/L (46-116); AMYLASE 41 U/L (25-115); ANION GAP 5 mmol/L (5-15); ASPARTATE AMINO TRANSFERASE 93 U/L (15-37); BILIRUBIN,TOTAL 18.8 MG/DL (0.2-1.0); BLOOD UREA NITROGEN 12 mg/dL (7-18); CALCIUM 7.7 MG/DL (8.5-10.1); CARBON DIOXIDE 24 MMOL/L (21-32); CHLORIDE 104 MMOL/L (98-107); CREATININE 0.8 MG/DL (0.55-1.30); POTASSIUM 3.7 MMOL/L (3.5-5.1); SODIUM 133 MMOL/L (136-145)
--- NOTE | 2019-02-20 06:51 | NUR ---
NURSE NOTE: Paracentesis bandage to the LLQ was saturated with serous drainage. Dressing removed and replaced with 4x4's and tegaderm. Neither MD Carreno or David returned page regarding IV fluids, will endorse to day shift nurse.
--- NOTE | 2019-02-20 07:29 | NUR ---
HAND-OFF: Report given to
--- NOTE | 2019-02-20 07:56 | NUR ---
NURSE NOTES: Received report from Sanam SHOEMAKER, pt a/a/o x 4 laying in bed with no signs of distress or other issues at this time. IV on the left AC gauge #20 heplock. pt is NPO x ice chips and meds. plan for EGD this morning. call light within reach. bed in lowest position. side rales up x2. I will f/u as needed.
[2019-02-20] MEDS: Thiamine 100mg tab ORAL SCH (09:09)
[2019-02-20] MEDS ORDERED: D5 1/2NS w/KCl 20mEq 1,000 ML IV SCH (10:30)
[2019-02-20] MEDS ORDERED: Propofol 200mg/20ml IV ONE (11:00)
[2019-02-20] MEDS ORDERED: NS 500ML IVPB ONE (11:07)
--- NOTE | 2019-02-20 11:07 | Pre-Procedure Note/Attestation ---
Pre-Procedure Note/Attestation Complete Prior to Procedure Planned Procedure: not applicable Procedure Narrative: egd Indications for Procedure Pre-Operative Diagnosis: cirrhosis Attestation I attest that I discussed the nature of the procedure; its benefits; risks and complications; and alternatives (and the risks and benefits of such alternatives ), prior to the procedure, with the patient (or the patient's legal product sales representative). I attest that, if there was a reasonable possibility of needing a blood transfusion, the patient (or the patient's legal product sales representative) was given the [facility] standardized written summary, pursuant to the [place] Blood Safety Act ([place] Health and Safety Code # 1645, as amended). I attest that I re-evaluated the patient just prior to the surgery and that there has been no change in the patient's H&P, except as documented below: Yovani Carreno MD Feb 20, 2019 11:07
--- NOTE | 2019-02-20 11:27 | Endoscopy Procedure Note ---
Endoscopy Procedure Note General Indication for Procedure: cirrhosis Procedures Performed: EGD Operative Findings/Diagnosis: EV Specimen: yes Pt Tolerated Procedure Well: Yes Estimated Blood Loss: none Anesthesia Anesthesiologist: david Anesthesia: MAC Inserted Devices Implant(s) used?: No GI Core Measures 50 yrs or older w/o bx or poly: Not Applicable 10yrs. F/U recommended: Not Applicable Yovani Carreno MD Feb 20, 2019 11:27
--- NOTE | 2019-02-20 11:35 | Anethesia Preoperative Eval ---
Anesthesia Pre-op PMH/ROS General Date of Evaluation: Feb 20, 2019 Time of Evaluation: 11:02 Anesthesiologist: Alfredo ASA Score: ASA 3 Mallampati Score Class I : Soft palate, uvula, fauces, pillars visible Class II: Soft palate, uvula, fauces visible Class III: Soft palate, base of uvula visible Class IV: Only hard plate visible Mallampati Classification: Class II Surgeon: Wai Diagnosis: Liver cirrosis Surgical Procedure: EGD Anesthesia History: none Social History: alcohol use - h/o abuse Family History: no anesthesia problems Allergies: Coded Allergies: FISH DERIVED (Verified Allergy, Unknown, 11/03/15) Shrimp (Verified Allergy, Unknown, 11/03/15) Medications: see eMAR Patient NPO?: Yes Past Medical History Cardiovascular: Reports: HTN; Denies: CAD, [place], valve dz, arrhythmia, other Pulmonary: Denies: asthma, COPD, EDD, other Gastrointestinal/Genitourinary: Reports: GERD, other - liver cirrosis ascitis; Denies: CRI, ESRD Neurologic/Psychiatric: Reports: depression/anxiety; Denies: dementia, CVA, TIA, other Endocrine: Denies: DM, hypothyroidism, steroids, other HEENT: Denies: cataract (L), cataract (R), glaucoma, [place] (L), [place] (R), other Hematology/Immune: Reports: anemia - mild; Denies: DVT, bleeding disorder, other Musculoskeletal/Integumentary: Denies: OA, RA, DJD, DDD, edema, other PMH Narrative: as above PSxH Narrative: see H&P Anesthesia Pre-op Phys. Exam Physician Exam Last Vital Signs Date Time Temp Pulse Resp B/P (MAP) Pulse Ox O2 Delivery O2 Flow Rate FiO2 02/20/19 09:00 Room Air 02/20/19 08:00 98.3 96 18 111/69 (83) 93 Constitutional: NAD Neurologic: CN 2-12 intact Cardiovascular: RRR, no M/R/G Respiratory: CTA Gastrointestinal: other - distended Airway Exam Mallampati Score: Class II MO: limited Neck: stiff ROM: limited Teeth: intact Dentures: no upper, no lower Anesthesia Pre-op A/P Labs Hematology Test 02/20/19 05:11 White Blood Count 7.0 K/UL (4.8-10.8) Red Blood Count 3.32 M/UL (4.70-6.10) L Hemoglobin 12.5 G/DL (14.2-18.0) L Hematocrit 34.7 % (42.0-52.0) L Mean Corpuscular Volume 104 FL (80-99) H Mean Corpuscular Hemoglobin 37.5 PG (27.0-31.0) H Mean Corpuscular Hemoglobin Concent 35.9 G/DL (32.0-36.0) Red Cell Distribution Width 12.1 % (11.6-14.8) Platelet Count 78 K/UL (150-450) L Mean Platelet Volume 6.3 FL (6.5-10.1) L Neutrophils (%) (Auto) % (45.0-75.0) Lymphocytes (%) (Auto) % (20.0-45.0) Monocytes (%) (Auto) % (1.0-10.0) Eosinophils (%) (Auto) % (0.0-3.0) Basophils (%) (Auto) % (0.0-2.0) Coagulation Test 02/20/19 05:11 Prothrombin Time 15.7 SEC (9.30-11.50) H Prothromb Time International Ratio 1.5 (0.9-1.1) H Chemistry Test 02/20/19 05:11 Sodium Level 133 MMOL/L (136-145) L Potassium Level 3.7 MMOL/L (3.5-5.1) Chloride Level 104 MMOL/L (98-107) Carbon Dioxide Level 24 MMOL/L (21-32) Anion Gap 5 mmol/L (5-15) Blood Urea Nitrogen 12 mg/dL (7-18) Creatinine 0.8 MG/DL (0.55-1.30) Estimat Glomerular Filtration Rate > 60 mL/min (>60) Glucose Level 94 MG/DL (74-106) Calcium Level 7.7 MG/DL (8.5-10.1) L Iron Level 94 ug/dL (50-175) Total Iron Binding Capacity 115 ug/dL (250-450) L Percent Iron Saturation 82 % (15-50) H Unsaturated Iron Binding 21 ug/dL (112-346) L Total Bilirubin 18.8 MG/DL (0.2-1.0) H Direct Bilirubin 14.0 MG/DL (0.0-0.3) H Aspartate Amino Transf (AST/SGOT) 93 U/L (15-37) H Alanine Aminotransferase (ALT/SGPT) 36 U/L (12-78) Alkaline Phosphatase 194 U/L (46-116) H Ammonia 61 umol/L (11-32) H Total Protein 6.1 G/DL (6.4-8.2) L Albumin 1.8 G/DL (3.4-5.0) L Globulin 4.3 g/dL Albumin/Globulin Ratio 0.4 (1.0-2.7) L Amylase Level 41 U/L (25-115) Risk Assessment & Plan Assessment: ASA 3 Plan: MAC Status Change Before Surgery: Gonzalez Celis MD Feb 20, 2019 11:34
--- NOTE | 2019-02-20 11:36 | Immediate Post-Op Evaluation ---
Immediate Post-Op Evalulation Immediate Post-Op Evalulation Procedure: EGD esophagial banding Date of Evaluation: Feb 20, 2019 Time of Evaluation: 11:35 IV Fluids: 200 Blood Products: none Estimated Blood Loss: none Urinary Output: none Blood Pressure Systolic: 105 Blood Pressure Diastolic: 67 Pulse Rate: 92 Respiratory Rate: 20 O2 Sat by Pulse Oximetry: 98 Temperature (Fahrenheit): 97.6 Pain Score (1-10): 1 Nausea: No Vomiting: No Complications none Patient Status: awake, patent, none Hydration Status: adequate Gonzalez Fuentes MD Feb 20, 2019 11:36
--- NOTE | 2019-02-20 12:03 | 48 Hour Post Anesthesia Eval ---
Post Anesthesia Evaluation Procedure: EGD esophagial banding Date of Evaluation: Feb 20, 2019 Time of Evaluation: 12:02 Blood Pressure Systolic: 116 0: 72 Pulse Rate: 68 Respiratory Rate: 20 Temperature (Fahrenheit): 97.6 O2 Sat by Pulse Oximetry: 98 Airway: patent Nausea: No Vomiting: No Pain Intensity: 1 Hydration Status: adequate Cardiopulmonary Status: stable Mental Status/LOC: patient returned to baseline Follow-up Care/Observations: n/a Post-Anesthesia Complications: none Follow-up care needed: N/A Gonzalez Fuentes MD Feb 20, 2019 12:03
[2019-02-20] MEDS: Lactulose 10gm/15ml UDC ORAL SCH ×2 (13:01→16:58)
[2019-02-20] MEDS: cefTRIAXone 1gm/D5W 55ml IVPB SCH ×2 (13:02)
[2019-02-20] MEDS: Propranolol 10mg tab ORAL SCH ×2 (13:05→22:00)
--- NOTE | 2019-02-20 15:56 | NUR ---
CASE MANAGEMENT: REVIEW 02/20/19 SI: LIVER CIRRHOSIS; MUSCLE SPASM 98.3 96 18 111/69 93% ON RA NH3 61; NA+ 133; CA+ 7.7; RBC 3.32; H/H 12.5/34.7; TBIL 18.8; DBIL 14.0; ALK PHOS 194; PT/INR 15.7/1.5 IS: IV PHYTONADIONE X1 IV ALBUMIN HUMAN X1 VIT B1 PO QD FOLATE PO QD : 3E MED SURG UNIT DCP: RETURN HOME WHEN MEDICALLY CLEAR PLAN: EGD COMPLETE
--- NOTE | 2019-02-20 15:57 | NUR ---
*-* INSURANCE *-* ALL AVAILABLE CLINICALS HAVE BEEN FAXED TO: KIANNA GILES CM #[phone] FAX#[phone] REVIEWS/CLINICALS
--- NOTE | 2019-02-20 18:15 | Procedure Note ---
SURGEON: Yovani Carreno M.D. PROCEDURE: Upper endoscopy with biopsy and banding of esophageal varices. ANESTHESIA: Per Dr. Gonzalez Fuentes. INSTRUMENT: Olympus adult flexible upper endoscopy. INDICATION: Upper GI bleeding. REASON FOR PROCEDURE: The procedure, risks, benefits, and possible consequences, including hemorrhage, aspiration, perforation and infection, and alternative treatments, were explained to the patient/legal guardian by Dr. Yovani Carreno and the patient/legal guardian understood and accepted these risks. PROCEDURE IN DETAIL: After informed consent and the patient was adequately sedated, Olympus upper endoscope was advanced from the mouth into the second portion of the duodenum and retroflexion was performed in the stomach. The patient had 4 columns of grade 4 distal esophageal varices with one stigmata. No evidence of gastric varices. In the stomach, there was mild portal hypertensive gastropathy. Random biopsy from antrum was obtained. At this time, the upper endoscope was retrieved and banding device was placed. Total of 5 bands were placed in the distal esophagus. The patient tolerated the procedure very well without any complication. SUMMARY OF FINDINGS: 1. Esophageal varices, 4 columns of grade 4 status post banding x5. 2. Portal hypertensive gastropathy. RECOMMENDATIONS: Follow up pathology. The patient will need repeat endoscopy and banding in 4 weeks as an outpatient. Meanwhile, we will continue on antibiotics for SBP prophylaxis. The patient to be started on propranolol when the blood pressure and pulse is stable. The patient also to be on diuretics for ascites. I want to thank Dr. Hernandez for this kind referral. Yovani Carreno M.D. DR: DARIO JOB#: [id number] CC: Casey Hernandez MD
--- NOTE | 2019-02-20 19:30 | NUR ---
HAND-OFF: Report given to Yarelis SHOEMAKER, pt in stable condition.
--- NOTE | 2019-02-20 19:40 | NUR ---
NURSE NOTES: Patient awake, ambulatory. Sister at bedside. No complaints of pain at this time. No s/s distress noted. Bed in lowest position, call light within reach. Will continue to monitor.
--- NOTE | 2019-02-20 20:06 | Internal Med Progress Note ---
Subjective Date of Service: Feb 19, 2019 Physician Name Casey Hernandez Attending Physician Casey Hernandez MD Current Medications Medications (Trade) Dose Ordered Sig/Anil Route PRN Reason Start Time Stop Time Status Last Admin Dose Admin Alprazolam (Xanax) 0.25 mg BID PRN ORAL For Anxiety 02/18/19 20:15 02/25/19 20:14 Ceftriaxone Sodium 1 gm/ Dextrose 55 ml @ 110 mls/hr Q24H IVPB 02/20/19 13:00 02/27/19 12:59 02/20/19 13:02 Dextrose (Dextrose 50%) 25 ml Q30M PRN IV Hypoglycemia 02/18/19 18:45 03/20/19 18:44 Dextrose (Dextrose 50%) 50 ml Q30M PRN IV Hypoglycemia 02/18/19 18:45 03/20/19 18:44 Folic Acid (Folate) 1 mg DAILY ORAL 02/19/19 09:00 03/21/19 08:59 02/20/19 09:09 Lactulose (Cephulac) 10 gm THREE TIMES A DAY ORAL 02/20/19 13:00 03/22/19 12:59 02/20/19 16:58 Morphine Sulfate (Morphine Sulfate) 2 mg EVERY 6 HOURS PRN IVP Moderate Pain (Pain Scale 4-6) 02/18/19 18:45 02/25/19 18:44 Pantoprazole (Protonix) 40 mg DAILY IVP 02/21/19 09:00 03/23/19 08:59 Propranolol HCl (Inderal) 10 mg Q8HR ORAL 02/20/19 14:00 03/22/19 13:59 02/20/19 13:05 Thiamine HCl (Vitamin B1) 100 mg DAILY ORAL 02/19/19 09:00 03/21/19 08:59 02/20/19 09:09 Allergies: Coded Allergies: FISH DERIVED (Verified Allergy, Unknown, 11/03/15) Shrimp (Verified Allergy, Unknown, 11/03/15) Gastrointestinal/Abdominal: Reports: abdomen distended, abdominal pain All Systems: reviewed and negative except above Objective Last Vital Signs Date Time Temp Pulse Resp B/P (MAP) Pulse Ox O2 Delivery O2 Flow Rate FiO2 02/20/19 16:00 97.8 77 18 103/59 (74) 97 02/20/19 12:30 Room Air 02/20/19 11:50 3 General Appearance: no apparent distress, alert EENT: PERRL/EOMI, normal ENT inspection Neck: normal alignment, supple Cardiovascular: normal rate, regular rhythm Respiratory/Chest: lungs clear, normal breath sounds Abdomen: non tender, soft, distended Extremities: normal range of motion, non-tender Edema: trace edema Skin: normal pigmentation, warm/dry Laboratory Tests Test 02/20/19 05:11 White Blood Count 7.0 K/UL (4.8-10.8) Red Blood Count 3.32 M/UL (4.70-6.10) L Hemoglobin 12.5 G/DL (14.2-18.0) L Hematocrit 34.7 % (42.0-52.0) L Mean Corpuscular Volume 104 FL (80-99) H Mean Corpuscular Hemoglobin 37.5 PG (27.0-31.0) H Mean Corpuscular Hemoglobin Concent 35.9 G/DL (32.0-36.0) Red Cell Distribution Width 12.1 % (11.6-14.8) Platelet Count 78 K/UL (150-450) L Mean Platelet Volume 6.3 FL (6.5-10.1) L Neutrophils (%) (Auto) % (45.0-75.0) Lymphocytes (%) (Auto) % (20.0-45.0) Monocytes (%) (Auto) % (1.0-10.0) Eosinophils (%) (Auto) % (0.0-3.0) Basophils (%) (Auto) % (0.0-2.0) Prothrombin Time 15.7 SEC (9.30-11.50) H Prothromb Time International Ratio 1.5 (0.9-1.1) H Sodium Level 133 MMOL/L (136-145) L Potassium Level 3.7 MMOL/L (3.5-5.1) Chloride Level 104 MMOL/L (98-107) Carbon Dioxide Level 24 MMOL/L (21-32) Anion Gap 5 mmol/L (5-15) Blood Urea Nitrogen 12 mg/dL (7-18) Creatinine 0.8 MG/DL (0.55-1.30) Estimat Glomerular Filtration Rate > 60 mL/min (>60) Glucose Level 94 MG/DL (74-106) Calcium Level 7.7 MG/DL (8.5-10.1) L Iron Level 94 ug/dL (50-175) Total Iron Binding Capacity 115 ug/dL (250-450) L Percent Iron Saturation 82 % (15-50) H Unsaturated Iron Binding 21 ug/dL (112-346) L Total Bilirubin 18.8 MG/DL (0.2-1.0) H Direct Bilirubin 14.0 MG/DL (0.0-0.3) H Aspartate Amino Transf (AST/SGOT) 93 U/L (15-37) H Alanine Aminotransferase (ALT/SGPT) 36 U/L (12-78) Alkaline Phosphatase 194 U/L (46-116) H Ammonia 61 umol/L (11-32) H Total Protein 6.1 G/DL (6.4-8.2) L Albumin 1.8 G/DL (3.4-5.0) L Globulin 4.3 g/dL Albumin/Globulin Ratio 0.4 (1.0-2.7) L Amylase Level 41 U/L (25-115) Hepatitis A IgM Antibody Pending Hepatitis B Surface Antigen Pending Hepatitis B Core IgM Antibody Pending Hepatitis C Antibody Pending Intake and Output 02/19/19 02/20/19 19:00 07:00 Intake Total 240 ml Balance 240 ml Intake Oral 240 ml # Voids 2 2 # Bowel Movements 1 Assessment/Plan Assessment/Plan ASSESSMENT: 1. Left hand cramps. 2. Cirrhosis with ascites, coagulopathy with INR of 1.5, splenomegaly, and portal hypertension (MELD score 22) 3. Alcoholism. PLAN: 1. Level - med/surg. 2. GI consult in the morning. 3. s/p paracenthesis 4L 4. Discussed with the patient on discontinuing alcohol. 5. cw thiamine and folate. 6. SCDs. 7. Resume patient's home medications. 8. EGD tomorrow - check for varices Casey Hernandez MD Feb 20, 2019 20:06
--- NOTE | 2019-02-20 20:16 | Internal Med Progress Note ---
Subjective Physician Name Casey Hernandez Attending Physician Casey Hernandez MD Current Medications Medications (Trade) Dose Ordered Sig/Anil Route PRN Reason Start Time Stop Time Status Last Admin Dose Admin Alprazolam (Xanax) 0.25 mg BID PRN ORAL For Anxiety 02/18/19 20:15 02/25/19 20:14 Ceftriaxone Sodium 1 gm/ Dextrose 55 ml @ 110 mls/hr Q24H IVPB 02/20/19 13:00 02/27/19 12:59 02/20/19 13:02 Dextrose (Dextrose 50%) 25 ml Q30M PRN IV Hypoglycemia 02/18/19 18:45 03/20/19 18:44 Dextrose (Dextrose 50%) 50 ml Q30M PRN IV Hypoglycemia 02/18/19 18:45 03/20/19 18:44 Folic Acid (Folate) 1 mg DAILY ORAL 02/19/19 09:00 03/21/19 08:59 02/20/19 09:09 Lactulose (Cephulac) 10 gm THREE TIMES A DAY ORAL 02/20/19 13:00 03/22/19 12:59 02/20/19 16:58 Morphine Sulfate (Morphine Sulfate) 2 mg EVERY 6 HOURS PRN IVP Moderate Pain (Pain Scale 4-6) 02/18/19 18:45 02/25/19 18:44 Pantoprazole (Protonix) 40 mg DAILY IVP 02/21/19 09:00 03/23/19 08:59 Propranolol HCl (Inderal) 10 mg Q8HR ORAL 02/20/19 14:00 03/22/19 13:59 02/20/19 13:05 Thiamine HCl (Vitamin B1) 100 mg DAILY ORAL 02/19/19 09:00 03/21/19 08:59 02/20/19 09:09 Allergies: Coded Allergies: FISH DERIVED (Verified Allergy, Unknown, 11/03/15) Shrimp (Verified Allergy, Unknown, 11/03/15) Gastrointestinal/Abdominal: Reports: abdomen distended All Systems: reviewed and negative except above Objective Last Vital Signs Date Time Temp Pulse Resp B/P (MAP) Pulse Ox O2 Delivery O2 Flow Rate FiO2 02/20/19 16:00 97.8 77 18 103/59 (74) 97 02/20/19 12:30 Room Air 02/20/19 11:50 3 General Appearance: no apparent distress, alert EENT: PERRL/EOMI, normal ENT inspection Neck: normal alignment, supple Cardiovascular: normal rate, regular rhythm Respiratory/Chest: lungs clear, normal breath sounds Abdomen: non tender, soft Extremities: normal range of motion, non-tender Edema: trace edema, mild edema Skin: normal pigmentation, warm/dry Laboratory Tests Test 02/20/19 05:11 White Blood Count 7.0 K/UL (4.8-10.8) Red Blood Count 3.32 M/UL (4.70-6.10) L Hemoglobin 12.5 G/DL (14.2-18.0) L Hematocrit 34.7 % (42.0-52.0) L Mean Corpuscular Volume 104 FL (80-99) H Mean Corpuscular Hemoglobin 37.5 PG (27.0-31.0) H Mean Corpuscular Hemoglobin Concent 35.9 G/DL (32.0-36.0) Red Cell Distribution Width 12.1 % (11.6-14.8) Platelet Count 78 K/UL (150-450) L Mean Platelet Volume 6.3 FL (6.5-10.1) L Neutrophils (%) (Auto) % (45.0-75.0) Lymphocytes (%) (Auto) % (20.0-45.0) Monocytes (%) (Auto) % (1.0-10.0) Eosinophils (%) (Auto) % (0.0-3.0) Basophils (%) (Auto) % (0.0-2.0) Prothrombin Time 15.7 SEC (9.30-11.50) H Prothromb Time International Ratio 1.5 (0.9-1.1) H Sodium Level 133 MMOL/L (136-145) L Potassium Level 3.7 MMOL/L (3.5-5.1) Chloride Level 104 MMOL/L (98-107) Carbon Dioxide Level 24 MMOL/L (21-32) Anion Gap 5 mmol/L (5-15) Blood Urea Nitrogen 12 mg/dL (7-18) Creatinine 0.8 MG/DL (0.55-1.30) Estimat Glomerular Filtration Rate > 60 mL/min (>60) Glucose Level 94 MG/DL (74-106) Calcium Level 7.7 MG/DL (8.5-10.1) L Iron Level 94 ug/dL (50-175) Total Iron Binding Capacity 115 ug/dL (250-450) L Percent Iron Saturation 82 % (15-50) H Unsaturated Iron Binding 21 ug/dL (112-346) L Total Bilirubin 18.8 MG/DL (0.2-1.0) H Direct Bilirubin 14.0 MG/DL (0.0-0.3) H Aspartate Amino Transf (AST/SGOT) 93 U/L (15-37) H Alanine Aminotransferase (ALT/SGPT) 36 U/L (12-78) Alkaline Phosphatase 194 U/L (46-116) H Ammonia 61 umol/L (11-32) H Total Protein 6.1 G/DL (6.4-8.2) L Albumin 1.8 G/DL (3.4-5.0) L Globulin 4.3 g/dL Albumin/Globulin Ratio 0.4 (1.0-2.7) L Amylase Level 41 U/L (25-115) Hepatitis A IgM Antibody Pending Hepatitis B Surface Antigen Pending Hepatitis B Core IgM Antibody Pending Hepatitis C Antibody Pending Intake and Output 02/19/19 02/20/19 19:00 07:00 Intake Total 240 ml Balance 240 ml Intake Oral 240 ml # Voids 2 2 # Bowel Movements 1 Assessment/Plan Assessment/Plan ASSESSMENT: 1. Left hand cramps. 2. Cirrhosis with ascites, coagulopathy with INR of 1.5, splenomegaly, and portal hypertension (MELD score 22) w/ varices 3. Alcoholism. PLAN: 1. Level - med/surg. 2. GI recs 3. order another paracenthesis bc of leak of ascites 4. Discussed with the patient on discontinuing alcohol. 5. cw thiamine and folate. 6. SCDs. 7. Resume patient's home medications. 8. lasix 20mg/aldactone 50mg 9. Propranolol 10mg PO TID Casey Hernandez MD Feb 20, 2019 20:16
--- NOTE | 2019-02-20 20:17 | Discharge Instructions ---
Discharge Instructions Discharge Instructions Follow up with: PCP in 1 wk ; Dr. Carreno in 4 wks Call MD/Return to Hospital if: worsening symptoms Diet: 2 GM sodium (low sodium) Resume Normal Activity?: Yes For Congestive Heart Failure Reminder Report to your physician any weight gain of 5 pounds or more in one week. Casey Hernandez MD Feb 20, 2019 20:17
--- NOTE | 2019-02-20 20:45 | NUR ---
NURSE NOTES: Called and left message for Dr. Hernandez regarding clarification on Aldactone and Lasix order since patient's BP 106/71 HR 76, awaiting response.
[2019-02-20] MEDS: Spironolactone 50mg tab ORAL SCH (21:20)
[2019-02-20 21:50] LABS: ALANINE AMINOTRANSFERASE 36 U/L (12-78); ALBUMIN 1.8 G/DL (3.4-5.0); ALBUMIN/GLOBULIN RATIO 0.4 (1.0-2.7); ALKALINE PHOSPHATASE 178 U/L (46-116); ANION GAP 7 mmol/L (5-15); ASPARTATE AMINO TRANSFERASE 98 U/L (15-37); BILIRUBIN,TOTAL 21.5 MG/DL (0.2-1.0); BLOOD UREA NITROGEN 14 mg/dL (7-18); CALCIUM 7.7 MG/DL (8.5-10.1); CARBON DIOXIDE 24 MMOL/L (21-32); CHLORIDE 104 MMOL/L (98-107); CREATININE 0.7 MG/DL (0.55-1.30); POTASSIUM 3.8 MMOL/L (3.5-5.1); SODIUM 135 MMOL/L (136-145)
[2019-02-20 21:51] LABS: BILIRUBIN,DIRECT 15.2 MG/DL (0.0-0.3)
[2019-02-21] VITALS (9 sets, daily range): BP systolic 90–115; BP diastolic 53–69
[2019-02-21] MEDS: Propranolol 10mg tab ORAL SCH (05:04)
[2019-02-21 06:23] LABS: HEMATOCRIT 37.3 % (42.0-52.0); HEMOGLOBIN 13.2 G/DL (14.2-18.0); MEAN CORPUSCULAR VOLUME 105 FL (80-99); PLATELET COUNT 85 K/UL (150-450); RED BLOOD COUNT 3.56 M/UL (4.70-6.10); WHITE BLOOD COUNT 7.7 K/UL (4.8-10.8)
[2019-02-21 07:00] LABS: ALANINE AMINOTRANSFERASE 34 U/L (12-78); ALBUMIN 1.7 G/DL (3.4-5.0); ALBUMIN/GLOBULIN RATIO 0.4 (1.0-2.7); ALKALINE PHOSPHATASE 168 U/L (46-116); ANION GAP 7 mmol/L (5-15); ASPARTATE AMINO TRANSFERASE 96 U/L (15-37); BILIRUBIN,TOTAL 20.5 MG/DL (0.2-1.0); BLOOD UREA NITROGEN 14 mg/dL (7-18); CALCIUM 7.9 MG/DL (8.5-10.1); CARBON DIOXIDE 25 MMOL/L (21-32); CHLORIDE 105 MMOL/L (98-107); CREATININE 0.8 MG/DL (0.55-1.30); POTASSIUM 3.7 MMOL/L (3.5-5.1); SODIUM 136 MMOL/L (136-145)
[2019-02-21 07:06] LABS: BILIRUBIN,DIRECT 14.6 MG/DL (0.0-0.3)
[2019-02-21 07:09] LABS: INR 1.6 (0.9-1.1)
[2019-02-21] MEDS ORDERED: fentaNYL 100 mcg/2 mL IV ONE (07:11)
[2019-02-21] MEDS ORDERED: Midazolam 2mg/2ml Inj ONE (07:11)
--- NOTE | 2019-02-21 07:28 | NUR ---
HAND-OFF: Report given to PAOLA SULLIVAN RN. PATIENT IN STABLE CONDITION.
--- NOTE | 2019-02-21 07:46 | NUR ---
NURSE NOTES: Pt awake father is at bedside. Current plan will be followed. To include pending paracentesis , and discharge planning.
[2019-02-21] MEDS: Lactulose 10gm/15ml UDC ORAL SCH ×3 (08:45→17:27)
[2019-02-21] MEDS: Spironolactone 50mg tab ORAL SCH (08:50)
[2019-02-21] MEDS: Thiamine 100mg tab ORAL SCH (08:52)
--- NOTE | 2019-02-21 08:52 | NUR ---
NURSE NOTES: Will follow up with MD for blood pressure , at 90/56 Lasix and Aldactone held. PO multivitamin held, due to pending paracentesis
[2019-02-21] MEDS ORDERED: Pantoprazole Inj IVP SCH (09:00)
--- NOTE | 2019-02-21 10:12 | NUR ---
NURSE NOTES: dr Russell phoned made aware of low blood pressure, gave orders to d/c Lasix and Aldactone. stated if the paracentesis , was still needed to proceed with it, and he will give me further orders. Abdominal girth 106 cm. White of eyes are jaundiced , skin remains jaundiced, no complaints of pain at this time
--- NOTE | 2019-02-21 10:47 | General Progress Note ---
Assessment/Plan Assessment/Plan: ETOH cirrhosis ascites hypoalbuminemia coagulopathy portal HTN paracentesis>>> no fluid on the second us s/p EGD>> varices s/p banding needs repeat EGD and banding in 4 weeks dc propanolol given low BP repeat labs Subjective ROS Limited/Unobtainable: Yes Allergies: Coded Allergies: FISH DERIVED (Verified Allergy, Unknown, 11/03/15) Shrimp (Verified Allergy, Unknown, 11/03/15) Objective Last 24 Hour Vital Signs Date Time Temp Pulse Resp B/P (MAP) Pulse Ox O2 Delivery O2 Flow Rate FiO2 02/21/19 05:04 78 115/64 02/21/19 04:25 98.4 78 18 115/64 (81) 93 02/21/19 00:23 98.6 82 18 101/55 (70) 93 02/20/19 22:44 Room Air 02/20/19 22:00 85 107/67 02/20/19 20:46 98.2 76 18 106/71 (83) 96 02/20/19 16:00 97.8 77 18 103/59 (74) 97 02/20/19 13:05 64 116/68 02/20/19 12:30 97.1 92 20 106/56 100 Room Air 02/20/19 12:20 92 20 116/76 100 Room Air 02/20/19 12:05 89 20 110/63 100 Room Air 02/20/19 12:03 68 20 98 02/20/19 11:50 91 21 111/63 100 Nasal Cannula 3 02/20/19 11:40 90 22 111/60 100 Nasal Cannula 3 02/20/19 11:36 92 20 98 02/20/19 11:35 92 22 113/67 100 Nasal Cannula 3 02/20/19 11:30 97.6 96 24 106/63 100 Nasal Cannula 3 Intake and Output 02/20/19 02/21/19 18:59 06:59 Intake Total 550 ml 240 ml Balance 550 ml 240 ml Intake Oral 300 ml 240 ml IV Total 250 ml # Voids 2 2 Laboratory Tests 02/20/19 21:15: Sodium Level 135L, Potassium Level 3.8, Chloride Level 104, Carbon Dioxide Level 24, Anion Gap 7, Blood Urea Nitrogen 14, Creatinine 0.7, Estimat Glomerular Filtration Rate > 60, Glucose Level 99, Calcium Level 7.7L, Total Bilirubin 21.5H, Direct Bilirubin 15.2H, Aspartate Amino Transf (AST/SGOT) 98H, Alanine Aminotransferase (ALT/SGPT) 36, Alkaline Phosphatase 178H, Total Protein 6.2L, Albumin 1.8L, Globulin 4.4, Albumin/Globulin Ratio 0.4L 02/21/19 04:50: Sodium Level 136, Potassium Level 3.7, Chloride Level 105, Carbon Dioxide Level 25, Anion Gap 7, Blood Urea Nitrogen 14, Creatinine 0.8, Estimat Glomerular Filtration Rate > 60, Glucose Level 78, Calcium Level 7.9L, Total Bilirubin 20.5H, Direct Bilirubin 14.6H, Aspartate Amino Transf (AST/SGOT) 96H, Alanine Aminotransferase (ALT/SGPT) 34, Alkaline Phosphatase 168H, Total Protein 6.1L, Albumin 1.7L, Globulin 4.4, Albumin/Globulin Ratio 0.4L, White Blood Count 7.7, Red Blood Count 3.56L, Hemoglobin 13.2L, Hematocrit 37.3L, Mean Corpuscular Volume 105H, Mean Corpuscular Hemoglobin 37.2H, Mean Corpuscular Hemoglobin Concent 35.4, Red Cell Distribution Width 12.0, Platelet Count 85L, Mean Platelet Volume 5.5L, Neutrophils (%) (Auto) , Lymphocytes (%) (Auto) , Monocytes (%) (Auto) , Eosinophils (%) (Auto) , Basophils (%) (Auto) , Prothrombin Time 17.1H, Prothromb Time International Ratio 1.6H Height (Feet): 5 Height (Inches): 5.00 Weight (Pounds): 172 General Appearance: alert EENT: normal ENT inspection Neck: supple Cardiovascular: normal rate Respiratory/Chest: decreased breath sounds Abdomen: normal bowel sounds, non tender, soft Extremities: non-tender Yovani Carreno MD Feb 21, 2019 10:47
--- NOTE | 2019-02-21 10:49 | NUR ---
NURSE NOTES: Dr Carreno called to follow up on pt , stated he will be here to see pt. Dr Russell phoned made him aware that paracentesis, he no longer needed. Awaiting further orders.
--- NOTE | 2019-02-21 11:58 | NUR ---
CASE MANAGEMENT: REVIEW 02/21/19 SI: LIVER CIRRHOSIS; MUSCLE SPASM 97.9 71 21 90/53 96% ON RA CA+ 7.9; RBC 3.32; H/H 12.5/34.7; TBIL 20.5; DBIL 14.6; ALK PHOS 168; PT/INR 17.1/1.6; PLT 85; ALB 1.7 IS: IV CEFTRIAXONE Q24HR IV PROTONIX QD LACTULOSE PO TID : 3E MED SURG UNIT DCP: RETURN HOME WHEN MEDICALLY CLEAR PLAN: DISCHARGE AFTER PARACENTESIS Addendum: 02/21/19 at 1308 by MARY HERNANDEZ LVN CASE MANAGEMENT: REVIEW 02/21/19 SI: S/P ESOPHAGEAL VARICES WITH X5 BANDING. CIRRHOSIS WITH ASCITES 97.9 71 21 90/53 96% ON RA CA+ 7.9; H/H 12.5/34.7; TBIL 20.5; DBIL 14.6; PT/INR 17.1/1.6; PLT 85; ALB 1.7 IS: IV CEFTRIAXONE Q24HR IV PROTONIX QD LACTULOSE PO TID : 3E MED SURG UNIT DCP: RETURN HOME WHEN MEDICALLY CLEAR PLAN: EGD and banding in 4 weeks
--- NOTE | 2019-02-21 12:09 | Diagnostic Imaging Report ---
Indication: Abdominal distention Technique: Grayscale images of the peritoneal space Comparison: Imaging during paracentesis of 02/18/2019 Findings: Only trace fluid is seen in the left lower quadrant and right lower quadrant, insufficient for paracentesis Impression: Only trace peritoneal fluid demonstrated. No paracentesis performed at this time
[2019-02-21] MEDS: cefTRIAXone 1gm/D5W 55ml IVPB SCH ×2 (13:25)
--- NOTE | 2019-02-21 16:00 | NUR ---
NURSE NOTES: called to be made aware that pt blood pressure is low. 93/54. Awaiting confirmation to preceded with discharge. gave orders to dc propranolol and gave okay to give generic of Zanaflex. Pt states he feels dizzy
--- NOTE | 2019-02-21 17:36 | NUR ---
NURSE NOTES: Dr Johnson gave okay to discharge pt if blood pressure is stable after albumin is given
--- NOTE | 2019-02-21 20:08 | NUR ---
HAND-OFF: Report given to Aundrea SHOEMAKER made aware that if pt b/p has improved he can be discharged per Dr Russell.
--- NOTE | 2019-02-21 20:09 | NUR ---
NURSE NOTES: Received report & pt from SAHARA Callejas. Pt lying in bed, a&ox4, in room air, family member at bedside. No s/s of acute distess & no c/o pain. Noted jaundiced skin & distended abdomen. IV site intact. Pt already has an order for D/C if BP is stable after albumin infuses. Will continue to monitor BP. Bed in lowest position, call light within reach. Will continue to monitor.
--- NOTE | 2019-02-21 23:00 | NUR ---
DISCHARGE NOTE: D/C'd pt to home as ordered. Pt's BP stable 107/59. Pt a&ox4. Denies pain, N/V. IV D/C'd. Explained d/c instructions. All questions answered. D/C paper signed. Refused to be wheeled via w/c. Accompanied by RN, brother, and father downstairs to private vehicle.
--- NOTE | 2019-02-22 07:56 | Discharge Summary ---
Discharge Summary Discharge Summary _ DATE OF ADMISSION: 02/18/2019 DATE OF DISCHARGE: 02/21/2019 DISCHARGED BY: Dr. Hernandez REASON FOR ADMISSION: 43 years old male with past medical history of cirrhosis, ventral hernia, history of alcoholism, presented to emergency department complaining of cramping of the left hand and locking for the last week. He reported having yellow eyes over the last 2 months . He noted that his abdomen was more distended over the last 2 weeks. Patient drinks about 12-14 beers a day for the last 3 to 4 years; prior he was drinking 8 beers a day. Patient seen color paste mixer for one visit , but did not follow-up with him. Laboratory work-up revealed no leukocytosis, stable hemoglobin and hematocrit , platelet count 97. INR 1.5. Stable electrolytes and renal parameters. Total bilirubin 21.1, direct bilirubin 16.1. AST 122, ALT 50, alkaline phosphatase 223. Albumin 2. Ammonia 22. Lipase 510. Urinalysis revealed +3 bilirubin, +2 ketones, +2 protein, no evidence of UTI. Urine toxicology screen was negative. CT of the abdomen pelvis revealed cirrhosis of the liver with signs of portal hypertension, moderate ascites, splenomegaly, recanalized umbilical vein and portal system, gynecomastia. Patient subsequently undergone ultrasound-guided paracentesis , which yielded 4.2 L of clear ascitic fluid. Chest x-ray revealed no acute cardiopulmonary pathology. Patient subsequently admitted to medical surgical floor for further management. CONSULTANTS: GI specialist Dr Carreno [facility] COURSE: Patient admitted to medical surgical floor. Patient started on thiamine and folic acid. Patient started on diuresis with Lasix and Aldactone. Patient was on prophylactic antibiotic for SBP prophylaxis. Patient started on propranolol . GI specialist followed. Patient undergone upper endoscopy with biopsy and banding of esophageal varices on 02/20. During procedure found evidence of portal hypertensive gastropathy. GI specialist recommended repeat endoscopy and banding in 4 weeks as an outpatient. Cytology of ascitic fluid revealed rare group of atypical cells , favor reactive mesothelial cells. Hemoglobin and hematocrit were closely monitored, showed mild anemia . Prior to discharge hemoglobin -13,3, hematocrit -37.2. Stool for occult blood was negative. Platelet count remained low , likely due to cirrhosis . Prior to discharge PLT - 85. SCD for mechanical prophylaxis for DVT provided Hepatitis serology was negative. Repeated ultrasound showed only trace peritoneal fluid . No need for another paracentesis. Propranolol was discontinued due to low blood pressure. Patient was continued on diuretics. Albumin boluses provided as needed. Patient was on GI prophylaxis with PPI. Patient was continued on thiamine and folic acid. LFT were closely monitored, remained elevated with minimal trend down. . Ammonia level initially 22 and then increased to 61 . Patient started on lactulose. Patient was counseled on cessation of alcohol. Patient clinically stabilized , and was ready for discharge home. FINAL DIAGNOSES: ETOH cirrhosis Ascites , status post paracentesis Status post EGD with biopsy and banding of esophageal varices Portal hypertension Coagulopathy Hypoalbuminemia Left hand cramps Alcoholism DISCHARGE MEDICATIONS: See Medication Reconciliation list. DISCHARGE INSTRUCTIONS: Patient was discharged home . Follow up with primary care provider in one week. I have been assigned to dictate discharge summary for this account. I was not involved in the patient's management. Lorelei Dodd NP Feb 22, 2019 07:56
--- NOTE | 2019-02-22 11:38 | Cardiology Report ---
APPROVED REPORT EKG Measurement Heart [id number] Normal sinus rhythm Normal ECG
--- NOTE | 2019-02-22 16:12 | NUR ---
*-* INSURANCE *-* ALL AVAILABLE CLINICALS HAVE BEEN FAXED TO: KIANNA GILES CM #[phone] FAX#[phone] REVIEWS/CLINICALS Addendum: 02/22/19 at 1613 by JADA BECERRA CM DISCHARGE SUMMARY HAS BEEN FAXED
--- NOTE | 2019-02-22 23:33 | Discharge Summary ---
Discharge Summary Hospital Course Date of Admission Feb 18, 2019 at 15:18 Date of Discharge Feb 21, 2019 at 23:00 Admitting Diagnosis liver failure and ventral non reducable hernia HPI Jeison Resendiz is a 43 year old male who was admitted on Feb 18, 2019 at 15: 18 for Liver Failure And Ventral Non Reducable Hernia patient seen by GI for cirrhosis. had EG showing varices. had paracenthesis of 4L. Orange much better. Discharged home with fu with GI Discharge Condition Upon Discharge: stable Discharge Disposition Patient was discharged to HOME Discharge Instructions Discharge Instructions Follow up with: PCP in 1 wk ; Dr. Carreno in 4 wks Call MD/Return to Hospital if: worsening symptoms Casey Hernandez MD Feb 22, 2019 23:33
== END 2019-02-21 23:00 | disposition home or self-care (01) | DRG 432 ==
LOC: EMR 13:50 → 3E 15:18 → EDBEDREQ 17:37
PROC: 0W9G3ZZ Drainage of Peritoneal Cavity, Percutaneous Approach (ICD-10-PCS; principal; 2019-02-18)
PROC: 06L38CZ Occlusion of Esophageal Vein with Extraluminal Device, Via Natural or Artificial Opening Endoscopic (ICD-10-PCS; 2019-02-18)
PROC: 0DB78ZX Excision of Stomach, Pylorus, Via Natural or Artificial Opening Endoscopic, Diagnostic (ICD-10-PCS; 2019-02-18)
DX: K70.31 Alcoholic cirrhosis of liver with ascites (principal); I85.11 Secondary esophageal varices with bleeding; K76.6 Portal hypertension; R25.2 Cramp and spasm; F10.20 Alcohol dependence, uncomplicated; K31.89 Other diseases of stomach and duodenum; E88.09 Other disorders of plasma-protein metabolism, not elsewhere classified; R79.1 Abnormal coagulation profile
CPT/HCPCS: 36415; 71045; 74177; 76705; 76942; 80053; 80307; 81003; 82140; 82150; 82248; 82270; 83540; 83550; 83690; 84484; 85007; 85025; 85610; 85730; 86705; 86709; 86803; 86850; 86900; 86901; 87340; 93005; 94003; 94150; 99285; J2250; J3430

== ENCOUNTER 2019-02-26 14:18 | Emergency (ER) | payer BC ==
[~2019-02-26] VITALS: Ht 162.6 cm; Wt 86.2 kg
[~2019-02-26 14:18] MED LIST changes: +ALPRAZOLAM0.25 MG ORAL; +B COMPLEX WITH1 EAC2 ORAL; +VITAMIN B-1100 MG ORAL
--- NOTE | 2019-02-26 14:25 | NUR ---
ED Nurse Note: Patient arrived to ED by car from home requesting to have paracentesis. Patient stated that he had a paracentesis at the facility 1 week ago. Patient in no acute distress, bed in lowest position. Blood sent to lab.
[2019-02-26 14:30] VITALS: BP 120/78
--- NOTE | 2019-02-26 14:45 | NUR ---
patient went to ultrasound for paracentesis
--- NOTE | 2019-02-26 15:09 | Emergency Room Report ---
History of Present Illness General Chief Complaint: General Complaint Source: Patient Present Illness HPI 43-year-old male presents ED for evaluation. Presenting with distended abdomen. History of cirrhosis. Went to his PMD today and was told to come to the ED for a paracentesis. Denies shortness of breath abdominal pain. Denies nausea or vomiting. Was recently admitted to the [facility] and discharged. Had a recent paracentesis done here. No other aggravating relieving factors. Denies any other associated symptoms Allergies: Coded Allergies: FISH DERIVED (Verified Allergy, Unknown, 11/03/15) Shrimp (Verified Allergy, Unknown, 11/03/15) Patient History Past Medical History: HTN Past Surgical History: none Pertinent Family History: none Social History: Denies: smoking, alcohol use, drug use Immunizations: UTD Reviewed Nursing Documentation: PMH: Agreed; PSxH: Agreed Nursing Documentation-PMH Past Medical History: No History, Except For Hx Cardiac Problems: No Hx Hypertension: Yes Hx Cancer: No Hx Neurological Problems: No Review of Systems All Other Systems: negative except mentioned in HPI Physical Exam Vital Signs Date Time Temp Pulse Resp B/P (MAP) Pulse Ox O2 Delivery O2 Flow Rate FiO2 02/26/19 14:21 97.9 87 18 117/78 (91) 99 Room Air Sp02 EP Interpretation: reviewed, normal General Appearance: no apparent distress, alert, GCS 15, non-toxic Head: normocephalic, atraumatic Eyes: bilateral eye normal inspection, bilateral eye PERRL, bilateral eye other - icteric sclera ENT: hearing grossly normal, normal pharynx, no angioedema, normal voice Neck: full range of motion, supple/symm/no masses Respiratory: chest non-tender, lungs clear, normal breath sounds, speaking full sentences Cardiovascular #1: regular rate, rhythm, no edema Cardiovascular #2: 2+ carotid (R), 2+ carotid (L), 2+ radial (R), 2+ radial (L) , 2+ dorsalis pedis (R), 2+ dorsalis pedis (L) Gastrointestinal: normal bowel sounds, soft, no guarding, no rebound, distended Rectal: deferred Genitourinary: normal inspection, no CVA tenderness Musculoskeletal: back normal, gait/station normal, normal range of motion, non- tender Neurologic: alert, oriented x3, responsive, motor strength/tone normal, sensory intact, speech normal Psychiatric: judgement/insight normal, memory normal, mood/affect normal, no suicidal/homicidal ideation Reflexes: 3+ bicep (R), 3+ bicep (L), 3+ tricep (R), 3+ tricep (L), 3+ knee (R) , 3+ knee (L) Skin: jaundice Lymphatic: no adenopathy Medical Decision Making Diagnostic Impression: Primary Impression: S/P abdominal paracentesis Additional Impression: Ascites Qualified Codes: R18.8 - Other ascites ER Course Hospital Course 43 yo M presents to ED c/o abd distension. h/o cirrhosis. requesting paracentesis differential diagnosis: coagulopathy, cirrhosis, SBP Clinical course Patient placed on stretcher. On compliance monitor. After initial history, physical exam reveals male in no acute distress. Patient has significant jaundice. Has icteric sclera. Has distended abdomen. No pain. No guarding. patient admitted recently for ascites as well as cirrhosis. had paracentesis on 02/19. We performed paracentesis here via IR. patient tolerated procedure without complication. Discussed findings with patient. Will discharge to home. Will provide PMD information. I feel this is a highly complex case requiring extensive working including EKG/ Rhythm strip, Xray/CT/US, Blood/urine lab work, repeat exams while in ED, and administration of strong opiates/narcotics for pain control, admission to hospital or close patient follow up. Diagnosis - s/p abdominal paracentesis. ascites Stable and discharged to home with prescriptions for lasix. Followup with PMD. Return to ED if symptoms recur or worsen Labs Test 02/26/19 15:00 White Blood Count 9.1 K/UL (4.8-10.8) Red Blood Count 4.04 M/UL (4.70-6.10) Hemoglobin 15.2 G/DL (14.2-18.0) Hematocrit 41.2 % (42.0-52.0) Mean Corpuscular Volume 102 FL (80-99) Mean Corpuscular Hemoglobin 37.7 PG (27.0-31.0) Mean Corpuscular Hemoglobin Concent 37.0 G/DL (32.0-36.0) Red Cell Distribution Width 11.7 % (11.6-14.8) Platelet Count 91 K/UL (150-450) Mean Platelet Volume 5.5 FL (6.5-10.1) Neutrophils (%) (Auto) % (45.0-75.0) Lymphocytes (%) (Auto) % (20.0-45.0) Monocytes (%) (Auto) % (1.0-10.0) Eosinophils (%) (Auto) % (0.0-3.0) Basophils (%) (Auto) % (0.0-2.0) Differential Total Cells Counted 100 Neutrophils % (Manual) 78 % (45-75) Lymphocytes % (Manual) 13 % (20-45) Monocytes % (Manual) 5 % (1-10) Eosinophils % (Manual) 2 % (0-3) Basophils % (Manual) 0 % (0-2) Band Neutrophils 2 % (0-8) Platelet Estimate Decreased Platelet Morphology Normal Macrocytosis 2+ Sodium Level 131 MMOL/L (136-145) Potassium Level 3.8 MMOL/L (3.5-5.1) Chloride Level 100 MMOL/L (98-107) Carbon Dioxide Level 26 MMOL/L (21-32) Anion Gap 5 mmol/L (5-15) Blood Urea Nitrogen 19 mg/dL (7-18) Creatinine 1.0 MG/DL (0.55-1.30) Estimat Glomerular Filtration Rate > 60 mL/min (>60) Glucose Level 115 MG/DL (74-106) Calcium Level 7.8 MG/DL (8.5-10.1) Total Bilirubin 34.1 MG/DL (0.2-1.0) Direct Bilirubin 25.5 MG/DL (0.0-0.3) Aspartate Amino Transf (AST/SGOT) 146 U/L (15-37) Alanine Aminotransferase (ALT/SGPT) 57 U/L (12-78) Alkaline Phosphatase 177 U/L (46-116) Total Protein 7.1 G/DL (6.4-8.2) Albumin 2.1 G/DL (3.4-5.0) Globulin 5.0 g/dL Albumin/Globulin Ratio 0.4 (1.0-2.7) Last Vital Signs Date Time Temp Pulse Resp B/P (MAP) Pulse Ox O2 Delivery O2 Flow Rate FiO2 02/26/19 14:21 97.9 87 18 117/78 (91) 99 Room Air Status: improved Disposition: HOME, SELF-CARE Condition: Serious Scripts Furosemide* (LASIX*) 20 Mg Tablet 20 MG ORAL DAILY, #7 TAB Prov: Jose Eduardo Soriano MD 02/26/19 Jose Eduardo Soriano MD Feb 26, 2019 15:09
[2019-02-26 15:13] LABS: HEMATOCRIT 41.2 % (42.0-52.0); HEMOGLOBIN 15.2 G/DL (14.2-18.0); MEAN CORPUSCULAR VOLUME 102 FL (80-99); PLATELET COUNT 91 K/UL (150-450); RED BLOOD COUNT 4.04 M/UL (4.70-6.10); RED CELL DISTRIBUTION WIDTH 11.7 % (11.6-14.8); WHITE BLOOD COUNT 9.1 K/UL (4.8-10.8)
[2019-02-26 15:26] LABS: ANION GAP 5 mmol/L (5-15); BLOOD UREA NITROGEN 19 mg/dL (7-18); CALCIUM 7.8 MG/DL (8.5-10.1); CARBON DIOXIDE 26 MMOL/L (21-32); CHLORIDE 100 MMOL/L (98-107); POTASSIUM 3.8 MMOL/L (3.5-5.1); SODIUM 131 MMOL/L (136-145)
[2019-02-26 15:50] LABS: ALANINE AMINOTRANSFERASE 57 U/L (12-78); ALBUMIN 2.1 G/DL (3.4-5.0); ALKALINE PHOSPHATASE 177 U/L (46-116); ASPARTATE AMINO TRANSFERASE 146 U/L (15-37); BILIRUBIN,TOTAL 34.1 MG/DL (0.2-1.0)
[2019-02-26 15:54] LABS: ALBUMIN/GLOBULIN RATIO 0.4 (1.0-2.7)
[2019-02-26 15:55] LABS: BILIRUBIN,DIRECT 25.5 MG/DL (0.0-0.3)
--- NOTE | 2019-02-26 16:20 | Diagnostic Imaging Report ---
Indications: Ascites Procedure: Informed consent obtained. Ultrasound used to localize optimal puncture site. Sterile prepping and draping over the optimum site. Local anesthesia with 1% lidocaine. Under real-time ultrasound guidance, puncture of the peritoneal space performed using paracentesis needle. Digital image was saved and archived. Stylet removed. Catheter placed to vacuum bottle suction. Fluid was aspirated. Patient tolerated procedure well, without immediate complication. Findings: Followup sonography demonstrates some residual peritoneal fluid. More fluid cannot be obtained as the catheter was intermittently adherent to small bowel. Impression: Incomplete ultrasound-guided paracentesis, yielding 1.5 liters of fluid
[2019-02-26 16:30] VITALS: BP 124/84
[2019-02-26] MEDS ORDERED: FUROSEMIDE20 M1 ORAL (16:55)
[2019-02-26 17:00] VITALS: BP 123/84
--- NOTE | 2019-02-26 17:00 | NUR ---
ED Nurse Note: Pt cleared by health care Provider for discharge. DC instructions/prescription was given and explained to pt and verbalized understanding of teachings. All medical deviecs such as ID band removed. Pt is AAO x4, ambulatory and left with all personal belongings.
== END 2019-02-26 17:00 | disposition home or self-care (01) ==
LOC: EMR 16:11
DX: R18.8 Other ascites (principal); R14.0 Abdominal distension (gaseous); I10 Essential (primary) hypertension; Z91.013 Allergy to seafood
CPT/HCPCS: 36415; 76942; 80053; 82248; 85007; 85025; 99284

== ENCOUNTER 2019-02-28 15:02 | Inpatient (IN) | payer BC ==
[~2019-02-28] VITALS: Ht 162.6 cm; Wt 83.9 kg
[~2019-02-28 15:02] MED LIST changes: +FUROSEMIDE20 M1 ORAL
--- NOTE | 2019-02-28 15:18 | NUR ---
ED Nurse Note: Patient walked in from Dr Rand's office, liver doctor, for evaluation. Jaundice and abdominal ascites noted. No N/V. Patient states he had paracentesis done 02/19 and 02/26. Placed patient in hospital gown.
[2019-02-28 15:22] VITALS: BP 118/75
[2019-02-28 16:45] LABS: HEMATOCRIT 35.8 % (42.0-52.0); HEMOGLOBIN 13.4 G/DL (14.2-18.0); MEAN CORPUSCULAR VOLUME 101 FL (80-99); PLATELET COUNT 93 K/UL (150-450); RED BLOOD COUNT 3.55 M/UL (4.70-6.10); RED CELL DISTRIBUTION WIDTH 11.8 % (11.6-14.8); WHITE BLOOD COUNT 10.7 K/UL (4.8-10.8)
[2019-02-28 16:50] LABS: INR 1.8 (0.9-1.1)
[2019-02-28 16:52] LABS: ANION GAP 5 mmol/L (5-15); BLOOD UREA NITROGEN 21 mg/dL (7-18); CALCIUM 7.6 MG/DL (8.5-10.1); CARBON DIOXIDE 25 MMOL/L (21-32); CHLORIDE 100 MMOL/L (98-107); CREATININE 1.1 MG/DL (0.55-1.30); POTASSIUM 4.3 MMOL/L (3.5-5.1); SODIUM 130 MMOL/L (136-145)
[2019-02-28 17:09] LABS: ALANINE AMINOTRANSFERASE 57 U/L (12-78); ALBUMIN 1.9 G/DL (3.4-5.0); ALKALINE PHOSPHATASE 180 U/L (46-116); ASPARTATE AMINO TRANSFERASE 150 U/L (15-37); BILIRUBIN,TOTAL 32.7 MG/DL (0.2-1.0)
--- NOTE | 2019-02-28 17:10 | NUR ---
ED Nurse Note: IV access established; blood collected sent to lab
[2019-02-28 17:11] LABS: BILIRUBIN,DIRECT 21.9 MG/DL (0.0-0.3)
--- NOTE | 2019-02-28 17:15 | NUR ---
ED Nurse Note: Transferred from Room 15-1 to Bed 9; placed patient on cont. cardiac nurse practitioner, and cont. pulse ox. VSS; no SOB; denies pain at this time. Patient states he was here (ED) 2 days ago and was prescribed Lasix but has not taken it.
[2019-02-28 17:36] VITALS: BP 105/57
--- NOTE | 2019-02-28 18:05 | NUR ---
ED Nurse Note: MRSA/VRE/CRE screen done, sent down to lab.
--- NOTE | 2019-02-28 18:11 | NUR ---
HAND-OFF: Report given to SAHARA Feldman.
--- NOTE | 2019-02-28 18:29 | NUR ---
ED Nurse Note: resumed care report called pt going to floor now with american board certified orthotist.
--- NOTE | 2019-02-28 18:47 | NUR ---
NURSE NOTES: Received patient via gurney from the ED. family at bedside. Belongings accounted for. IV site at left hand, 20 gauge. Oriented patient to room. Bed at lowest level with 3 side rails up. Call light within reach. In no apparent distress at this time. Will continue to monitor.
--- NOTE | 2019-02-28 18:58 | History & Physical ---
History and Physical History & Physicial HISTORY AND PHYSICAL Patient: VENU MATHEW [facility] Rec #: [id number] Patient No.: [id number] Date of Service: 02/28/19 DATE OF ADMISSION: 02/28/19 REASON FOR ADMISSION: distended abdomen HISTORY OF PRESENT ILLNESS: This is a 43-year-old male with a history of alcoholism since younger, recently diagnosed with liver disease, who was admitted to [facility] last week for Cirrhosis with ascites s/p paracenthesis now returns to ER after [employer] Officer requested he come in for paracenthesis again. he has not been compliant with lasix according to the family. he stopped drinking alcohol. he reports abdomen is tense. PAST MEDICAL HISTORY: 1. Cirrhosis. 2. Ventral hernia. PAST SURGICAL HISTORY: None. SOCIAL HISTORY: The patient drinks 12 to 14 beers a day, was drinking 6 to 8 beers before that for the last 20 years, no drugs. No smoking. REVIEW OF SYSTEMS: A 12-point review of systems was negative except for pertinent positives as mentioned above. PHYSICAL EXAMINATION: Last 24 Hour Vital Signs Date Time Temp Pulse Resp B/P (MAP) Pulse Ox O2 Delivery O2 Flow Rate FiO2 02/28/19 18:30 98 26 122/62 96 Room Air 02/28/19 17:36 98.1 88 18 105/57 96 Room Air 02/28/19 15:22 97.9 98 17 118/75 99 Room Air 02/28/19 15:22 98 17 Room Air 02/28/19 15:08 97.9 98 17 118/75 (89) 99 Room Air GENERAL: No acute distress. The patient has icterus. The patient is jaundiced. HEENT: Normocephalic/atraumatic. NECK: Supple. No JVD. LUNGS: Clear to auscultation bilaterally. No crackles, rhonchi, or rales. CARDIOVASCULAR: Regular rate and rhythm. Normal S1, S2. ABDOMEN: Soft, nontender. Abdomen is distended. He has a fluid wave. EXTREMITIES: No clubbing, cyanosis. Has +1 pitting edema. NEUROLOGIC: The patient follows commands. LABORATORY AND DIAGNOSTIC DATA: Laboratory Tests Test 02/28/19 16:20 White Blood Count 10.7 K/UL (4.8-10.8) Red Blood Count 3.55 M/UL (4.70-6.10) L Hemoglobin 13.4 G/DL (14.2-18.0) L Hematocrit 35.8 % (42.0-52.0) L Mean Corpuscular Volume 101 FL (80-99) H Mean Corpuscular Hemoglobin 37.9 PG (27.0-31.0) H Mean Corpuscular Hemoglobin Concent 37.5 G/DL (32.0-36.0) H Red Cell Distribution Width 11.8 % (11.6-14.8) Platelet Count 93 K/UL (150-450) L Mean Platelet Volume 6.8 FL (6.5-10.1) Neutrophils (%) (Auto) % (45.0-75.0) Lymphocytes (%) (Auto) % (20.0-45.0) Monocytes (%) (Auto) % (1.0-10.0) Eosinophils (%) (Auto) % (0.0-3.0) Basophils (%) (Auto) % (0.0-2.0) Differential Total Cells Counted 100 Neutrophils % (Manual) 76 % (45-75) H Lymphocytes % (Manual) 12 % (20-45) L Monocytes % (Manual) 6 % (1-10) Eosinophils % (Manual) 4 % (0-3) H Basophils % (Manual) 0 % (0-2) Band Neutrophils 2 % (0-8) Platelet Estimate Decreased L Platelet Morphology Normal Anisocytosis 1+ Macrocytosis 1+ Prothrombin Time 18.5 SEC (9.30-11.50) H Prothromb Time International Ratio 1.8 (0.9-1.1) H Activated Partial Thromboplast Time 46 SEC (23-33) H Sodium Level 130 MMOL/L (136-145) L Potassium Level 4.3 MMOL/L (3.5-5.1) Chloride Level 100 MMOL/L (98-107) Carbon Dioxide Level 25 MMOL/L (21-32) Anion Gap 5 mmol/L (5-15) Blood Urea Nitrogen 21 mg/dL (7-18) H Creatinine 1.1 MG/DL (0.55-1.30) Estimat Glomerular Filtration Rate > 60 mL/min (>60) Glucose Level 97 MG/DL (74-106) Calcium Level 7.6 MG/DL (8.5-10.1) L Total Bilirubin 32.7 MG/DL (0.2-1.0) H Direct Bilirubin 21.9 MG/DL (0.0-0.3) H Aspartate Amino Transf (AST/SGOT) 150 U/L (15-37) H Alanine Aminotransferase (ALT/SGPT) 57 U/L (12-78) Alkaline Phosphatase 180 U/L (46-116) H Total Protein 6.6 G/DL (6.4-8.2) Albumin 1.9 G/DL (3.4-5.0) L Globulin 4.7 g/dL Lipase 380 U/L (73-393) Serum Alcohol < 3 mg/dL ASSESSMENT: Cirrhosis with ascites, coagulopathy with INR of 1.5, splenomegaly, and portal hypertension Alcoholism. PLAN: 1. Admit the patient to med/surg. 2. GI consult in the morning. 3. Evaluation for paracentesis in AM r/o SBP 4. Low salt diet 5. Lasix 20mg and aldactone 50mg daily Casey Hernandez MD Feb 28, 2019 18:58
[2019-02-28] MEDS ORDERED: Morphine Sulfate 2mg/ml Inj(IV/IM USE ONLY) IVP PRN (19:00)
[2019-02-28] MEDS ORDERED: Morphine Sulfate 4mg/ml Inj (IV USE ONLY) IVP PRN (19:00)
--- NOTE | 2019-02-28 19:54 | NUR ---
HAND-OFF: Report given to SAHARA Vallecillo.
[2019-02-28 20:00] VITALS: BP 116/79
--- NOTE | 2019-02-28 20:06 | NUR ---
NURSE NOTES: Received patient in bed, awake, alert, oriented, able to make his needs known, family at bedside, on cardiac diet, room air, IV site is clean dry and intact. Oriented to the room, call light is within reach, bed is in low position, locked and alarm is on. Will continue to monitor for safety and comfort.
[2019-02-28] MEDS: Spironolactone 50mg tab ORAL SCH (20:27)
[2019-02-28] MEDS: Thiamine 100mg tab ORAL SCH (20:27)
[2019-02-28 21:00] LABS: APPEARANCE,URINE SLIGHTLY CLOUDY; BILIRUBIN, URINE 3+ (NEGATIVE); GLUCOSE, URINE (UA) NEGATIVE (NEGATIVE); KETONES,URINE 1+ (NEGATIVE); LEUKOCYTE ESTERASE ,URINE 1+ (NEGATIVE); NITRITE,URINE POSITIVE (NEGATIVE); PH,URINE 6 (4.5-8.0); PROTEIN,URINE 2+ (NEGATIVE); UROBILINOGEN,URINE 8 MG/DL (0.0-1.0)
[2019-02-28 21:01] LABS: COLOR,URINE AMBER
--- NOTE | 2019-02-28 21:25 | Emergency Room Report ---
History of Present Illness General Chief Complaint: General Complaint Source: Patient Present Illness HPI Patient 43-year-old male brought in by self after increased abdominal discomfort. Patient had recently been hospitalized after increased abdominal pain and had prior paracentesis performed. He had been sent in for further evaluation and treatment of abdominal discomfort and possible SBP. Patient had not been having any fever. He reports having increased abdominal distention. He had a recent paracentesis which had not had a cell count performed. Patient was sent in by hepatology. Patient was discussed patient's primary care physician is Allergies: Coded Allergies: FISH DERIVED (Verified Allergy, Unknown, 11/03/15) Shrimp (Verified Allergy, Unknown, 11/03/15) Patient History Past Medical History: see triage record Reviewed Nursing Documentation: PMH: Agreed; PSxH: Agreed Nursing Documentation-PMH Past Medical History: No History, Except For Hx Cardiac Problems: No - liver chirrosis Hx Hypertension: Yes Hx Cancer: No Hx Neurological Problems: No Review of Systems All Other Systems: negative except mentioned in HPI Physical Exam Vital Signs Date Time Temp Pulse Resp B/P (MAP) Pulse Ox O2 Delivery O2 Flow Rate FiO2 02/28/19 15:08 97.9 98 17 118/75 (89) 99 Room Air Sp02 EP Interpretation: reviewed, normal General Appearance: normal inspection, well appearing, alert, Chronically Ill Head: atraumatic Eyes: bilateral eye scleral icterus ENT: normal ENT inspection, hearing grossly normal, normal voice Neck: normal inspection, full range of motion, supple, no bony tend Respiratory: normal inspection, lungs clear, normal breath sounds, no respiratory distress, no retraction, no wheezing Cardiovascular #1: regular rate, rhythm, no edema Gastrointestinal: distended, tenderness - mild diffuse, hernia Genitourinary: no CVA tenderness Musculoskeletal: normal inspection, back normal, normal range of motion Neurologic: normal inspection, alert, oriented x3, responsive, speech normal Psychiatric: normal inspection, judgement/insight normal, mood/affect normal Skin: jaundice Medical Decision Making Diagnostic Impression: Primary Impression: Ascites Additional Impressions: Alcoholic cirrhosis of liver Coagulopathy ER Course Patient presented for increased abdominal pain. Differential diagnosis include was not limited to pancreatitis, alcohol intoxication, spontaneous bacterial peritonitis among others. Because of complexity of patient's case laboratory tests and imaging studies were ordered. Patient was noted to have increased bilirubin as well as elevated coagulation studies compared to baseline. Patient 's abdomen does appear to have some tense ascites. Dr. Casey El was contacted for inpatient management. Laboratory Tests Test 02/28/19 16:20 White Blood Count 10.7 K/UL (4.8-10.8) Red Blood Count 3.55 M/UL (4.70-6.10) L Hemoglobin 13.4 G/DL (14.2-18.0) L Hematocrit 35.8 % (42.0-52.0) L Mean Corpuscular Volume 101 FL (80-99) H Mean Corpuscular Hemoglobin 37.9 PG (27.0-31.0) H Mean Corpuscular Hemoglobin Concent 37.5 G/DL (32.0-36.0) H Red Cell Distribution Width 11.8 % (11.6-14.8) Platelet Count 93 K/UL (150-450) L Mean Platelet Volume 6.8 FL (6.5-10.1) Neutrophils (%) (Auto) % (45.0-75.0) Lymphocytes (%) (Auto) % (20.0-45.0) Monocytes (%) (Auto) % (1.0-10.0) Eosinophils (%) (Auto) % (0.0-3.0) Basophils (%) (Auto) % (0.0-2.0) Differential Total Cells Counted 100 Neutrophils % (Manual) 76 % (45-75) H Lymphocytes % (Manual) 12 % (20-45) L Monocytes % (Manual) 6 % (1-10) Eosinophils % (Manual) 4 % (0-3) H Basophils % (Manual) 0 % (0-2) Band Neutrophils 2 % (0-8) Platelet Estimate Decreased L Platelet Morphology Normal Anisocytosis 1+ Macrocytosis 1+ Prothrombin Time 18.5 SEC (9.30-11.50) H Prothrombin Time INR 1.8 (0.9-1.1) H PTT 46 SEC (23-33) H Sodium Level 130 MMOL/L (136-145) L Potassium Level 4.3 MMOL/L (3.5-5.1) Chloride Level 100 MMOL/L (98-107) Carbon Dioxide Level 25 MMOL/L (21-32) Anion Gap 5 mmol/L (5-15) Blood Urea Nitrogen 21 mg/dL (7-18) H Creatinine 1.1 MG/DL (0.55-1.30) Estimate Glomerular Filtration Rate > 60 mL/min (>60) Glucose Level 97 MG/DL (74-106) Calcium Level 7.6 MG/DL (8.5-10.1) L Total Bilirubin 32.7 MG/DL (0.2-1.0) H Direct Bilirubin 21.9 MG/DL (0.0-0.3) H Aspartate Amino Transferase (AST) 150 U/L (15-37) H Alanine Aminotransferase (ALT) 57 U/L (12-78) Alkaline Phosphatase 180 U/L (46-116) H Total Protein 6.6 G/DL (6.4-8.2) Albumin 1.9 G/DL (3.4-5.0) L Globulin 4.7 g/dL Lipase 380 U/L (73-393) Serum Alcohol < 3 mg/dL Urine Color Altagracia Urine Appearance Slightly cloudy Urine pH 6 (4.5-8.0) Urine Specific Celeste 1.015 (1.005-1.035) Urine Protein 2+ (NEGATIVE) H Urine Glucose (UA) Negative (NEGATIVE) Urine Ketones 1+ (NEGATIVE) H Urine Blood 1+ (NEGATIVE) H Urine Nitrite Positive (NEGATIVE) H Urine Bilirubin 3+ (NEGATIVE) H Urine Ictotest Negative (NEGATIVE) Urine Urobilinogen 8 MG/DL (0.0-1.0) H Urine Leukocyte Esterase 1+ (NEGATIVE) H Urine RBC 0 /HPF (0 - 0) Urine WBC 2-4 /HPF (0 - 0) Urine Squamous Epithelial Cells None /LPF (NONE/OCC) Urine Bacteria Many /HPF (NONE) H Last Vital Signs Date Time Temp Pulse Resp B/P (MAP) Pulse Ox O2 Delivery O2 Flow Rate FiO2 02/28/19 18:30 98 26 122/62 96 Room Air 02/28/19 17:36 98.1 Scripts Spironolactone (ALDACTONE) 50 Mg Tablet 50 MG ORAL DAILY for 30 Days, #30 TAB Prov: Casey Hernandez MD 03/01/19 Referrals: NON PHYSICIAN (PCP) Guevara Pena MD Feb 28, 2019 21:25
[2019-03-01] VITALS: BP 119/66
[2019-03-01 04:00] VITALS: BP 117/64
--- NOTE | 2019-03-01 07:16 | NUR ---
NURSE NOTES: HANDOFF RECEIVED FROM SAHARA MORALES. PATIENT RECEIVED RESTING IN BED. PATIENT IS ALERT AND ABLE TO MAKE NEEDS KNOWN. IV SITE IS CLEAN, DRY AND INTACT, SALINE LOCKED. BED IN THE LOW AND LOCKED POSITION WITH CALL LIGHT WITHIN REACH. PATIENT DENIES PAIN, NO PHYSICAL SIGNS OF DISCOMFORT OR DISTRESS. WILL CONTINUE TO MONITOR PATIENT.
--- NOTE | 2019-03-01 07:18 | NUR ---
HAND-OFF: Report given to Dinh SHOEMAKER.
[2019-03-01 07:26] LABS: ALANINE AMINOTRANSFERASE 54 U/L (12-78); ALBUMIN 1.8 G/DL (3.4-5.0); ALKALINE PHOSPHATASE 173 U/L (46-116); ANION GAP 11 mmol/L (5-15); ASPARTATE AMINO TRANSFERASE 130 U/L (15-37); BILIRUBIN,TOTAL 29.2 MG/DL (0.2-1.0); BLOOD UREA NITROGEN 21 mg/dL (7-18); CALCIUM 7.7 MG/DL (8.5-10.1); CARBON DIOXIDE 20 MMOL/L (21-32); CHLORIDE 104 MMOL/L (98-107); CREATININE 1.1 MG/DL (0.55-1.30); POTASSIUM 3.5 MMOL/L (3.5-5.1); SODIUM 135 MMOL/L (136-145)
[2019-03-01 07:27] LABS: BILIRUBIN,DIRECT 21.3 MG/DL (0.0-0.3)
[2019-03-01 08:00] VITALS: BP 107/63
[2019-03-01] MEDS: Spironolactone 50mg tab ORAL SCH (09:43)
[2019-03-01] MEDS: Thiamine 100mg tab ORAL SCH (09:43)
--- NOTE | 2019-03-01 10:00 | NUR ---
NURSE NOTES: [employer] CALLED AND SAID THAT THE DOCTOR DOING THE PROCEDURE WANTS THE PATIENT TO RECEIVED 2 UNITS OF FRESH FROZEN PLASMA BEFORE THE PROCEDURE DUR TO PATIENT INR OF 1.8. CALLED DR POOLE TO GET ORDERS FOR THE FRESH FROZEN PLASMA AND THE INR LABS. DR HARRISAYED THE ORDERS.
--- NOTE | 2019-03-01 10:25 | NUR ---
NURSE NOTES: GAVE DR POOLE THE PATIENTS CELL PHONE NUMBER SO THAT CONSENT CAN BE OBTAINED FOR THE FRESH FROZEN PLASMA.
--- NOTE | 2019-03-01 11:00 | NUR ---
NURSE NOTES: PATIENT CONFIRMED THAT THE DOCTOR CALLED AND EXPLAINED THE PROCEDURE FOR THE FRESH FROZEN PLASMA. PATIENT UNDERSTANDS THE PROCEDURE AND SIGNED THE CONSENT FORM, WITNESSED BY AND SAHARA ROSALES
--- NOTE | 2019-03-01 11:05 | NUR ---
NURSE NOTES: PATIENT STATED THAT HE CANNOT TAKE MIRALAX IT MAKES HIM CONSTIPATED. CONTACTED DR SAMSON TO NOTIFY HIM. DR SAMSON DISCONTINUED THE MIRALAX PER PATIENT REQUEST.
[2019-03-01 12:00] VITALS: BP 107/61
[2019-03-01 12:10] LABS: INR 1.9 (0.9-1.1)
--- NOTE | 2019-03-01 12:39 | General Progress Note ---
Assessment/Plan Problem List: (1) Esophageal varices ICD Codes: I85.00 - Esophageal varices without bleeding SNOMED: 61520562 (2) Ascites ICD Codes: R18.8 - Other ascites SNOMED: 482745334 (3) S/P abdominal paracentesis ICD Codes: Z98.890 - Other specified postprocedural states SNOMED: 892269669 (4) Ascites ICD Codes: R18.8 - Other ascites SNOMED: 876361685 (5) Alcohol abuse ICD Codes: F10.10 - Alcohol abuse, uncomplicated SNOMED: 36754282 (6) Marijuana abuse ICD Codes: F12.10 - Cannabis abuse, uncomplicated SNOMED: 19873258 Assessment/Plan: change lasix to IV increase Aldactone to 100 monitor for electrolytes pending repeat paracentesis albumin propranolol if BP stable needs repeat EGD next month Subjective ROS Limited/Unobtainable: Yes Allergies: Coded Allergies: FISH DERIVED (Verified Allergy, Unknown, 11/03/15) Shrimp (Verified Allergy, Unknown, 11/03/15) Objective Last 24 Hour Vital Signs Date Time Temp Pulse Resp B/P (MAP) Pulse Ox O2 Delivery O2 Flow Rate FiO2 03/01/19 09:00 Room Air 03/01/19 08:00 97.4 87 18 107/63 (78) 94 03/01/19 04:00 97.9 80 19 117/64 (81) 95 03/01/19 00:00 97.9 87 20 119/66 (83) 99 02/28/19 21:00 Room Air 02/28/19 20:00 97.8 78 18 116/79 (91) 97 02/28/19 19:19 Room Air 02/28/19 18:30 98 26 122/62 96 Room Air 02/28/19 17:36 98.1 88 18 105/57 96 Room Air 02/28/19 15:22 97.9 98 17 118/75 99 Room Air 02/28/19 15:22 98 17 Room Air 02/28/19 15:08 97.9 98 17 118/75 (89) 99 Room Air Intake and Output 02/28/19 03/01/19 19:00 07:00 Intake Total 0 ml Balance 0 ml Intake Other 0 ml # Bowel Movements 2 Laboratory Tests 02/28/19 16:20: White Blood Count 10.7, Red Blood Count 3.55L, Hemoglobin 13.4L, Hematocrit 35.8L, Mean Corpuscular Volume 101H, Mean Corpuscular Hemoglobin 37.9H, Mean Corpuscular Hemoglobin Concent 37.5H, Red Cell Distribution Width 11.8, Platelet Count 93L, Mean Platelet Volume 6.8, Neutrophils (%) (Auto) , Lymphocytes (%) (Auto) , Monocytes (%) (Auto) , Eosinophils (%) (Auto) , Basophils (%) (Auto) , Differential Total Cells Counted 100, Neutrophils % ( Manual) 76H, Lymphocytes % (Manual) 12L, Monocytes % (Manual) 6, Eosinophils % ( Manual) 4H, Basophils % (Manual) 0, Band Neutrophils 2, Platelet Estimate DecreasedL, Platelet Morphology Normal, Anisocytosis 1+, Macrocytosis 1+, Prothrombin Time 18.5H, Prothromb Time International Ratio 1.8H, Activated Partial Thromboplast Time 46H, Sodium Level 130L, Potassium Level 4.3, Chloride Level 100, Carbon Dioxide Level 25, Anion Gap 5, Blood Urea Nitrogen 21H, Creatinine 1.1, Estimat Glomerular Filtration Rate > 60, Glucose Level 97, Calcium Level 7.6L, Total Bilirubin 32.7H, Direct Bilirubin 21.9H, Aspartate Amino Transf (AST/SGOT) 150H, Alanine Aminotransferase (ALT/SGPT) 57, Alkaline Phosphatase 180H, Total Protein 6.6, Albumin 1.9L, Globulin 4.7, Lipase 380, Serum Alcohol < 3 02/28/19 19:00: Urine Color Altagracia, Urine Appearance Slightly cloudy, Urine pH 6, Urine Specific Leland 1.015, Urine Protein 2+H, Urine Glucose (UA) Negative, Urine Ketones 1+H , Urine Blood 1+H, Urine Nitrite PositiveH, Urine Bilirubin 3+H, Urine Ictotest Negative, Urine Urobilinogen 8H, Urine Leukocyte Esterase 1+H, Urine RBC 0, Urine WBC 2-4, Urine Squamous Epithelial Cells None, Urine Bacteria ManyH 03/01/19 05:20: Sodium Level 135L, Potassium Level 3.5, Chloride Level 104, Carbon Dioxide Level 20L, Anion Gap 11, Blood Urea Nitrogen 21H, Creatinine 1.1, Estimat Glomerular Filtration Rate > 60, Glucose Level 77, Calcium Level 7.7L, Total Bilirubin 29.2H, Direct Bilirubin 21.3H, Aspartate Amino Transf (AST/SGOT) 130H , Alanine Aminotransferase (ALT/SGPT) 54, Alkaline Phosphatase 173H, Total Protein 6.1L, Albumin 1.8L, Globulin 4.3 03/01/19 11:10: Prothrombin Time 19.2H, Prothromb Time International Ratio 1.9H Height (Feet): 5 Height (Inches): 4.00 Weight (Pounds): 185 General Appearance: alert EENT: normal ENT inspection, scleral icterus Neck: supple Cardiovascular: normal rate Respiratory/Chest: decreased breath sounds Abdomen: soft, hypoactive bowel sounds, distended Extremities: non-tender Yovani Carreno MD Mar 01, 2019 12:39
[2019-03-01] MEDS ORDERED: Albumin Human 5% 250ml IV SCH (13:30)
--- NOTE | 2019-03-01 15:54 | NUR ---
CASE MANAGEMENT: INITIAL REVIEW 43 [address] M[address] DR. HOGAN'S OFFICE CC: GENERAL COMPLAINT PMH: CIRRHOSIS SI:ESOPHAGEAL VARICES. ACITES. S/P PARACENTESIS 97.9 98 17 118/75 99% ON RA NA+ 130 BUN 21 CA+7.6 TBIL 32.7 DBIL 21.9 AST 150 ALK PHOS 180 PT/INR 18.5/1.8 PTT 46 IS: LASIX PO QD ALDACTONE PO QD :4E MED SURG PLAN: GI CONSULT EVAL FOR PARACENTESIS R/O Spontaneous bacterial peritonitis CASE MANAGEMENT: REVIEW 03/01/19 PMH: CIRRHOSIS SI:ESOPHAGEAL VARICES. ACITES. S/P PARACENTESIS 97.4 87 18 107/63 94% ON RA BUN 21 CA+7.7 TBIL 29.2 DBIL 21.3 AST 130 ALK PHOS 173 PT/INR 19.2/1.9 IS: THIAMIN PO QD TX FFP X2 :4E MED SURG PLAN: US PARACENTESIS AFTER X2 FFP TX GI CONSULT R/O Spontaneous bacterial peritonitis
[2019-03-01 16:00] VITALS: BP 106/61
[2019-03-01] MEDS ORDERED: ALDACTONE50 MG ORAL (16:16)
--- NOTE | 2019-03-01 16:17 | Discharge Instructions ---
Discharge Instructions Discharge Instructions Follow up with: outpatient procedure center on monday Call MD/Return to Hospital if: worsening symptoms Diet: 2 GM sodium (low sodium) Resume Normal Activity?: Yes Activity: resume normal activities For Congestive Heart Failure Reminder Report to your physician any weight gain of 5 pounds or more in one week. Casey Hernandez MD Mar 01, 2019 16:17
--- NOTE | 2019-03-01 16:20 | Discharge Summary ---
Discharge Summary Hospital Course Date of Admission Feb 28, 2019 at 18:58 Date of Discharge Admitting Diagnosis tense ascites HPI Jeison Resendiz is a 43 year old male who was admitted on Feb 18, 2019 at 15: 18 for ascites he was scheduled to have a paracenthesis however bc of high bleeding risk will need 2 units FFP followed by Paracenthesis scheduled for monday as outpatient abdomen is not tender and no concern for SBP. patient seen by GI for cirrhosis Discharged home with fu with GI Discharge Medications New Medications: Spironolactone (Aldactone) 50 Mg Tablet 50 MG ORAL DAILY for 30 Days, #30 TAB Continued Medications: Furosemide* (Lasix*) 20 Mg Tablet 20 MG ORAL DAILY, #7 TAB Thiamine Hcl* (Vitamin B-1*) 100 Mg Tablet 100 MG ORAL DAILY, #30 TAB 0 Refills (This prescription has been renewed) Discharge Discharge Disposition Patient was discharged to HOME Discharge Instructions Discharge Instructions Follow up with: outpatient procedure center on monday Call MD/Return to Hospital if: worsening symptoms Activity: resume normal activities Casey Hernandez MD Mar 01, 2019 16:20
--- NOTE | 2019-03-01 18:05 | NUR ---
NURSE NOTES: PATIENT TOLERATED PLASMA TRANSFUSION WELL, VITALS REMAINED STABLE. WILL CONTINUE TO MONITOR.
--- NOTE | 2019-03-01 19:00 | NUR ---
NURSE NOTES: PATIENT DISCHARGED AND LEFT WITH FAMILY MEMBERS. PATIENT TOLD TO COME BACK TO THE HOSPITAL ON MONDAY FOR AN OUTPATIENT PROCEDURE. PATIENT SIGNED THE BELONGINGS LIST AND DISCHARGE PAPERWORK. PATIENT WAS WHEELED OUTSIDE AND LEFT VIA PRIVATE VEHICLE WITH FATHER AND FAMILY. IV SITE REMOVED, NO SIGNS OF BLEEDING OR HEMATOMA. GAVE THE PHYSICIAN NUMBER TO PATIENT TO FOLLOW UP WITH TREATMENT.
[2019-03-02] MEDS ORDERED: Spironolactone 50mg tab ORAL SCH (09:00)
--- NOTE | 2019-03-03 15:03 | NUR ---
CASE MANAGEMENT: CM review and clinical information (face sheet/ H&P/ DC summary/ ER MD notes) faxed to [employer] @ [phone]. Ref# [id number].
== END 2019-03-01 18:55 | disposition home or self-care (01) | DRG 433 ==
LOC: EMR 17:26 → EDBEDREQ 17:49 → 4E 18:58
PROC: 30233K1 Transfusion of Nonautologous Frozen Plasma into Peripheral Vein, Percutaneous Approach (ICD-10-PCS; principal; 2019-03-01)
DX: K70.31 Alcoholic cirrhosis of liver with ascites (principal); K76.6 Portal hypertension; I85.00 Esophageal varices without bleeding; D68.4 Acquired coagulation factor deficiency; R16.1 Splenomegaly, not elsewhere classified; F10.20 Alcohol dependence, uncomplicated; F12.10 Cannabis abuse, uncomplicated; Z91.14 Patient's other noncompliance with medication regimen
CPT/HCPCS: 36415; 80053; 81003; 82248; 83690; 85007; 85025; 85610; 85730; 86850; 86900; 86901; 86927; 87081; 87086; 87181; 99285; G0480